=== PATIENT | female | born 1955 | race Caucasian/White ===

== ENCOUNTER 2018-03-12 14:39 | Outpatient (CLI) | payer OTHER | END 2018-03-12 14:40 | disposition home or self-care (01) | LOC: BICRAD 14:39 | PROVIDERS: ATTEND Family Medicine | DX: R07.89 Other chest pain (principal) | CPT/HCPCS: 71046 ==

== ENCOUNTER 2018-04-01 07:26 | Outpatient (CLI) | payer BC | END 2018-04-01 07:27 | disposition home or self-care (01) | LOC: BICULT 07:26 | PROVIDERS: ATTEND Family Medicine | DX: K76.0 Fatty (change of) liver, not elsewhere classified (principal); N28.1 Cyst of kidney, acquired; K76.89 Other specified diseases of liver | CPT/HCPCS: 76700 ==

== ENCOUNTER 2018-05-16 21:01 | Outpatient (CLI) | payer BC | END 2018-05-16 21:02 | disposition home or self-care (01) | LOC: LAB 21:01 | PROVIDERS: ATTEND Physician Assistant | DX: M54.9 Dorsalgia, unspecified (principal) | CPT/HCPCS: 87077; 87086; 87186 ==

== ENCOUNTER 2018-06-02 15:52 | Inpatient (IN) | payer BC ==
[~2018-06-02 15:52] MED LIST: Iopamidol 370 76% 100 ML VIAL ONE
[2018-06-02] MEDS ORDERED: Ondansetron HCl/PF 4 MG/2 ML Vial ONE (16:18)
[2018-06-02] MEDS ORDERED: Morphine 4 MG/ML VIAL ONE (16:18)
[2018-06-02 16:45] LABS: #Basophils 0.1 thou/uL (0.0-0.2); #Eosinphils 0.1 thou/uL (0.0-0.7); #Lymphocytes 1.4 thou/uL (1.20-3.40); #Monocytes 0.7 thou/uL (0.11-0.59); #Neutrophils 5.2 thou/uL (1.40-6.50); %Basophils 1.1 % (0.0-1.0); %Eosinophils 1.6 % (0.0-10.0); %Lymphocytes 18.2 % (21.0-51.0); %Monocytes 8.8 % (0.0-10.0); %Neutrophils 70.3 % (42.0-75.0); Hemoglobin 12.3 g/dL (12.0-16.0); Mean Corpuscular HGB CONC 34.7 g/dL (32.0-36.0); Mean Corpuscular Hemoglobin 31.2 pg (27.0-31.0); Mean Corpuscular Volume 90.1 fL (78.0-98.0); Mean Platelet Volume 5.7 fL (7.4-10.4); Platelet Count 431 thou/uL (130-400); Red Blood Cell (RBC) Count 3.93 mill/uL (4.20-5.40); White Blood Cell (WBC) Count 7.4 thou/uL (4.8-10.8)
[2018-06-02 16:47] LABS: ALT (SGPT) 13 U/L (8-55); AST (SGOT) 10 U/L (5-34); Albumin 3.2 g/dL (3.4-4.8); Alkaline Phosphatase 148 U/L (40-150); Anion Gap 13 mmol/L (10-20); BUN (Urea Nitrogen) 20 mg/dL (9.8-20.1); Bilirubin, Total 0.3 mg/dL (0.2-1.2); Calc. Creatinine Clearance 0 mL/min (70-130); Calcium 9.1 mg/dL (7.8-10.44); Carbon Dioxide 16 mmol/L (23-31); Chloride 113 mmol/L (98-107); Estimated GFR-MDRD 47; Globulin 2.8 g/dL (2.4-3.5); Glucose 103 mg/dL (80-115); Sodium 139 mmol/L (136-145)
[2018-06-02 16:49] LABS: Potassium 2.9 mmol/L (3.5-5.1)
[2018-06-02] MEDS ORDERED: Morphine 4 MG/ML Carpuject ONE (18:57)
--- NOTE | 2018-06-02 20:13 | CT ---
ABDOMEN AND PELVIS CT WITH CONTRAST: INDICATIONS: Abdominal pain and distention. Abdominal guarding. COMPARISON: Reference made to 03/01/2015. FINDINGS: There is abnormal distention of small bowel with associated mesenteric edema and mesenteric venous co ngestion. There is a nondilated loop of thick walled bowel at the low abdomen. Small bowel remains mildly dilated, to the level of the anastomotic suture of the right mid abdomen, demonstrating the ap pearance of an intracolonic anastomosis, as a result of prior right hemicolectomy. Correlate with puente rgical history. There is no pneumoperitoneum or portal vein gas evident. Right renal cyst formation , along with additional multiple right renal hypodensities, too small to further characterize. There is also a small hypodensity of the lower pole left kidney. Bilateral nonobstructive nephrolithiasis is seen. No evidence of adrenal mass. There is mild pancreatic atrophy with pancreatic ductal prom inence, of indeterminate etiology. No peripancreatic inflammation is seen. Moderately distended, un opacified urinary bladder is grossly unremarkable. There is a mild to moderate compression deformity of T12, which is new from the 2015 exam. IMPRESSION: 1. Findings which indicate bowel obstruction, which does measure up to approximately 3.8 cm in trans verse diameter of distended small bowel. This approximates the level of the right sided intracolonic anastomosis. In addition, there is a loop of nondilated, inflamed bowel at the low abdomen, for whi ch superimposed acute enteritis, including ischemic bowel, cannot be excluded and, therefore, a surgi itz consultation is warranted in this regard, particularly in light of the history of abdominal guard ing. 2. Interval T12 compression deformity with mild to moderate associated height loss. 3. Additional findings are detailed above. Telephone call of findings placed to the ER physician, Brijesh Flores M.D., at the time of the dictat ion (1818 hours on 06/02/2018). CODE CR POS: [facility]AKOB
[2018-06-02] MEDS ORDERED: Ondansetron HCl/PF 4 MG/2 ML Vial IVP PRN (21:24)
[2018-06-02] MEDS ORDERED: Ondansetron ODT 4 MG TAB SL PRN (21:24)
[2018-06-02] MEDS: Sodium Chloride 0.9% 1,000 ML IV SCH (21:43)
[2018-06-02 22:07] VITALS: BMI 25.0
--- NOTE | 2018-06-02 22:10 | RAD ---
ABDOMINAL RADIOGRAPH SERIES FRONTAL VIEW 06/02/18 INDICATION: NG tube placement. FINDINGS: There is a coiled catheter at the left upper quadrant. There is mild left basilar patchy density favo ring atelectasis. Elevation of the right hemidiaphragm. There is extruded contrast media seen at the urinary collection systems. IMPRESSION: Enteric catheter is coiled at the left upper quadrant. POS: [facility]
[2018-06-03] MEDS: Acetaminophen 1,000 MG in Premix Bag 1 BAG IVPB PRN ×2 (01:18→10:33)
[2018-06-03] MEDS ORDERED: Potassium Chloride 40 MEQ in Sodium Chloride 0.9% 250 ML 250 ML IVPB SCH (02:00)
[2018-06-03] MEDS: Sodium Chloride 0.9% 1,000 ML IV SCH (10:32)
[2018-06-03] MEDS ORDERED: Acetaminophen 500 MG TAB PO PRN (16:01)
--- NOTE | 2018-06-03 16:33 | PDOC.GSCN ---
Surgery Consult: HPI - Consult details Date: 06/03/18 Time: 11:00 Reason for consult: small bowel obstruction History of present illness: 06/03/18 16:33 Patient presents with complaint of abdominal pain and bloating. She had never had this pain in the past. Denies fever, chills. Denies nausea or vomiting. Patient reports she passed gas and had a bowel movement this morning. 06/03/18 16:35 06/03/18 16:45 Surgery Consult: ROS - Review of Systems All systems: 10 systems reviewed and no additional complaints unless stated below. Surgery Consult: PMH Source: patient Past Medical History: [place], chronic back pain, hypothyroid Past Surgical History: Bowel resection 3 years ago (2014) - Past Family History Family history: reviewed and not pertinent - Past Social History Smoking Status: Former smoker Alcohol Use: pt denies any use Drug Use History: pt denies any use Living Situation: independent Surgery Consult: Exam - Vital signs Vital signs: Vital Signs - Most Recent Temp Pulse Resp BP Pulse Ox 98.2 F 67 22 H 122/75 99 06/03/18 11:31 06/03/18 11:31 06/03/18 11:31 06/03/18 11:31 06/03/18 11:31 - Physical Exam General: no distress Eye: normal ocular movement ENT: no hearing loss, normal pinna Respiratory: normal expansion, normal respiratory effort Abdomen: non tender, soft, bowel sounds Neurologic: normal coordination Musculoskeletal: normal posture Psychiatric: memory intact, oriented to time, oriented to person, oriented to place Surgery Consult: Meds - Medications MAR Reviewed: Yes Medications: Current Medications Acetaminophen (Tylenol) 1,000 mg PO Q6H PRN PRN Reason: Moderate to Severe Pain (6-10) Sodium Chloride (Flush - Normal Saline) 10 ml IVF Q12HR BENSON Sodium Chloride (Flush - Normal Saline) 10 ml IVF PRN PRN PRN Reason: Saline Flush - Allergies Allergies/Adverse Reactions: Allergies Allergy/AdvReac Type Severity Reaction Status Date / Time tramadol HCl [From Ultra] Allergy Severe seizure Verified 10/11/14 10:55 codeine Allergy ITCHING Verified 06/02/18 21:57 Surgery Consult: Results - Labs Result Diagrams: 06/02/18 16:25 06/02/18 16:25 Lab results: Laboratory Results WBC 7.4 thou/uL (4.8-10.8) 06/02/18 16:25 RBC 3.93 mill/uL (4.20-5.40) L 06/02/18 16:25 Hgb 12.3 g/dL (12.0-16.0) 06/02/18 16:25 Hct 35.4 % (36.0-47.0) L 06/02/18 16:25 MCV 90.1 fL (78.0-98.0) 06/02/18 16:25 MCH 31.2 pg (27.0-31.0) H 06/02/18 16:25 MCHC 34.7 g/dL (32.0-36.0) 06/02/18 16:25 RDW 12.0 % (11.5-14.5) 06/02/18 16:25 Plt Count 431 thou/uL (130-400) H 06/02/18 16:25 MPV 5.7 fL (7.4-10.4) L 06/02/18 16:25 Neutrophils % 70.3 % (42.0-75.0) 06/02/18 16:25 Lymphocytes % 18.2 % (21.0-51.0) L 06/02/18 16:25 Monocytes % 8.8 % (0.0-10.0) 06/02/18 16:25 Eosinophils % 1.6 % (0.0-10.0) 06/02/18 16:25 Basophils % 1.1 % (0.0-1.0) H 06/02/18 16:25 Neutrophils # 5.2 thou/uL (1.40-6.50) 06/02/18 16:25 Lymphocytes # 1.4 thou/uL (1.20-3.40) 06/02/18 16:25 Monocytes # 0.7 thou/uL (0.11-0.59) H 06/02/18 16:25 Eosinophils # 0.1 thou/uL (0.0-0.7) 06/02/18 16:25 Basophils # 0.1 thou/uL (0.0-0.2) 06/02/18 16:25 Sodium 139 mmol/L (136-145) 06/02/18 16:25 Potassium 2.9 mmol/L (3.5-5.1) L* 06/02/18 16:25 Chloride 113 mmol/L (98-107) H 06/02/18 16:25 Carbon Dioxide 16 mmol/L (23-31) L 06/02/18 16:25 Anion Gap 13 mmol/L (10-20) 06/02/18 16:25 BUN 20 mg/dL (9.8-20.1) 06/02/18 16:25 Creatinine 1.16 mg/dL (0.6-1.1) H 06/02/18 16:25 Estimated GFR (MDRD) 47 06/02/18 16:25 Glucose 103 mg/dL (80-115) 06/02/18 16:25 Lactic Acid 0.9 mmol/L (0.5-2.2) 06/02/18 16:25 Calcium 9.1 mg/dL (7.8-10.44) 06/02/18 16:25 Total Bilirubin 0.3 mg/dL (0.2-1.2) 06/02/18 16:25 AST 10 U/L (5-34) 06/02/18 16:25 ALT 13 U/L (8-55) 06/02/18 16:25 Alkaline Phosphatase 148 U/L (40-150) 06/02/18 16:25 Serum Total Protein 6.0 g/dL (6.0-8.3) 06/02/18 16:25 Albumin 3.2 g/dL (3.4-4.8) L 06/02/18 16:25 Globulin 2.8 g/dL (2.4-3.5) 06/02/18 16:25 Albumin/Globulin Ratio 1.1 g/dL (1.2-2.2) L 06/02/18 16:25 Surgery Consult: A/P - Plan Plan: Reviewed radiology, abdominal XR and CT completed in ER. Consulted for concern for SBO. Patient reported passing gas and having a bowel movement this morning. A small bowel follow through was considered, but decided against completing considering patient's resolved symptoms. At this time, no concern for SBO. NG tube was removed and patient advanced to clear liquid diet. Advance diet as tolerated. Do not recommend any operative management. Patient was seen and examined with Dr. Rich who is in agreement and helped formulate plan as noted above.
--- NOTE | 2018-06-03 18:58 | HP ---
CHIEF COMPLAINT: Abdominal pain. HISTORY OF PRESENT ILLNESS: The patient presents with complaint of abdominal pain and bloating. She has never had this pain in the past. Denies fever, chills. Denies nausea or vomiting. There was c oncern for small-bowel obstruction. Patient, however, reports that she passed gas and had a bowel mo vement this morning. REVIEW OF SYSTEMS: ALL SYSTEMS: Ten systems reviewed and no additional complaints unless stated bel ow. PAST MEDICAL HISTORY: [place], chronic back pain, hypothyroid. PAST SURGICAL HISTORY: Bowel resection 3 years ago, 2014 FAMILY HISTORY: Reviewed and not pertinent. ALLERGIES: TRAMADOL, CODEINE. SOCIAL HISTORY: Smoking status: Former smoker. Alcohol use: The patient denies any use. Drug use : The patient denies any use. OBJECTIVE: VITAL SIGNS: Temperature 98.7, pulse 68, respiration rate 18, 98% on room air, blood pressure 146/76 . LABORATORY DATA: White blood cells 7.4, hemoglobin 12.3, hematocrit 35.4, platelets 431. Sodium 139 , potassium 2.9, chloride 113, carbon dioxide 16, BUN 20, creatinine 1.16, glucose 103. Lactic acid 0.9, calcium 9.1, AST 10, ALT 13, total bilirubin 0.3, calcium 9.1, alkaline phosphatase 148, serum t otal protein 6, albumin 3.2, globulin 2.8, albumin-globulin ratio 1.1. CT abdomen and pelvis shows findings, which could indicate bowel obstruction. A 3.8 cm transverse di ameter of distended small bowel. This approximates the level of the right-sided intracolonic anastom osis. In addition, there is a loop of nondilated inflamed bowel at the lower abdomen for which super imposed acute enteritis including ischemic bowel cannot be excluded and therefore surgical consultati on is warranted. ASSESSMENT AND PLAN: The patient was admitted with concern for small-bowel obstruction. The patient reported passing gas and having a bowel movement this morning. A small bowel follow through was con sidered, but decided against completing considering the patient's resolved symptoms. Nasogastric tub e did not have significant output. It was removed and patient is advanced to a clear liquid diet. A t this time, no concern for small-bowel obstruction. We will advance diet as tolerated. Tylenol p.r .n. for pain. We will monitor BNP. Do not currently recommend any operative management. The patient was seen and examined with Dr. Rich who was in agreement and helped formulate plan as no olivia above.
[2018-06-03] MEDS ORDERED: Melatonin 3 MG TAB PO PRN (21:38)
[2018-06-04 06:34] LABS: Mean Corpuscular HGB CONC 33.5 g/dL (32.0-36.0); Mean Corpuscular Hemoglobin 32.7 pg (27.0-31.0); Mean Corpuscular Volume 97.6 fL (78.0-98.0); Mean Platelet Volume 5.9 fL (7.4-10.4); Platelet Count 444 thou/uL (130-400); RBC Distribution Width 12.8 % (11.5-14.5); Red Blood Cell (RBC) Count 3.68 mill/uL (4.20-5.40); White Blood Cell (WBC) Count 9.5 thou/uL (4.8-10.8)
[2018-06-04 06:46] LABS: Anion Gap 11 mmol/L (10-20); BUN (Urea Nitrogen) 9 mg/dL (9.8-20.1); Band 15 % (5-11); Calc. Creatinine Clearance 75 mL/min (70-130); Calcium 8.5 mg/dL (7.8-10.44); Carbon Dioxide 17 mmol/L (23-31); Chloride 114 mmol/L (98-107); Eosinophils 3 % (0-10); Estimated GFR-MDRD 74; Glucose 85 mg/dL (80-115); Lymphocytes 19 % (21-51); MDiff Complete? YES; Magnesium 1.5 mg/dL (1.6-2.6); Metamyelocyte 8 % (0-0); Monocytes 1 % (0-10); Myelocyte 3 % (0-0); Neutrophil 51 % (42-75); PLT Morphology Comment Appears Increased; Sodium 139 mmol/L (136-145)
[2018-06-04 06:52] LABS: Phosphorus 1.9 mg/dL (2.3-4.7); Potassium 2.7 mmol/L (3.5-5.1)
[2018-06-04] MEDS ORDERED: Potassium Phosphate 30 MMOL, Admixture Fee 1 EACH in Sodium Chloride 0.9% 500 ML IVPB SCH (07:15)
[2018-06-04] MEDS ORDERED: Magnesium 2 GM/NS 0.9% 100 ML 2 GM in Premix Bag 1 BAG IVPB SCH (09:30)
[2018-06-04 12:24] VITALS: BP 130/78; TEMP 98.4
--- NOTE | 2018-06-05 11:39 | DIS-2 ---
DATE OF ADMISSION: 06/02/2018 DATE OF DISCHARGE: 06/04/2018 ADMITTING AND DISCHARGE ATTENDING: Dr. Gee Rich. CONSULTS: None. PROCEDURES: None. PRIMARY DIAGNOSIS: Ileus. DISCHARGE MEDICATIONS: 1. Multivitamin 1 tab oral daily. 2. Liothyronine sodium 5 mL, 15 mcg oral daily. 3. Imitrex 100 mg oral every 2 hours as needed. 4. Synthroid 75 mcg oral daily. 5. Wellbutrin-XL 300 mg oral daily. 6. Trintellix 20 mg oral daily. 7. Vicoprofen one tab q.8 hours p.r.n. 8. Nexium 40 mg oral daily. 9. Remeron 30 mg oral daily. 10. Zaleplon 10 mg p.o. at bedtime as needed. 11. Melatonin 12 mg p.o. at bedtime p.r.n. HOSPITAL COURSE: The patient presented with complaint of abdominal pain and bloating. The patient w as admitted for concern of small-bowel obstruction. However, without intervention, the patient passe d gas and had a bowel movement. Nasogastric tube did not have significant output and was removed. T he patient's diet was advanced and tolerated well. The patient was stable for discharge home. DISPOSITION: Stable. DISCHARGE INSTRUCTIONS: 1. Location: Home. 2. Diet: Regular. 3. Activity: Able to return to light duty work, 06/06/2018. Able to return to full duty work, 05/22. As tolerated. 4. Followup: With PCP, Dr. Olson as needed. May follow up with Dr. Rich as needed.
== END 2018-06-04 16:21 | disposition home or self-care (01) | DRG 390 ==
LOC: SCSER 15:52 → SURG B 20:16
PROVIDERS: ADMIT Surgery; ATTEND Surgery
DX: K56.609 Unspecified intestinal obstruction, unspecified as to partial versus complete obstruction (principal); E03.9 Hypothyroidism, unspecified; Z87.891 Personal history of nicotine dependence
CPT/HCPCS: 36415; 74018; 74177; 80048; 80053; 83605; 83735; 84100; 85025; 96361; 96374; 96375; 96376; J0131; J2270; J2405; J3475; J3480; J7050

== ENCOUNTER 2018-12-04 10:45 | Outpatient (CLI) | payer BC ==
--- NOTE | 2018-12-04 11:33 | RAD ---
TWO VIEWS CHEST: Comparison: 09-26-10, 03-12-18 History: Abnormal chest radiograph. FINDINGS: Two views of the chest shows normal sized cardiomediastinal silhouette. Increased interstitial markin gs are present. There may be a small calcified granuloma projecting over the right lateral thorax. Th ere is no evidence of consolidation or pleural effusion. The bones are unremarkable. IMPRESSION: No evidence of acute cardiopulmonary disease. POS: [facility]
--- NOTE | 2018-12-04 11:35 | RAD ---
THREE VIEWS LEFT FOOT: Comparison: None History: Left foot pain along the top medial foot. FINDINGS: Three views of the left foot shows no evidence of acute fracture or dislocation. There is joint space narrowing is the great toe metatarsal phalangeal joint. IMPRESSION: Degenerative changes of the great toe without acute osseous abnormality. POS: [facility]
== END 2018-12-04 10:46 | disposition home or self-care (01) ==
LOC: BICRAD 10:45
PROVIDERS: ATTEND Family Medicine
DX: M79.672 Pain in left foot (principal); R93.89 Abnormal findings on diagnostic imaging of other specified body structures; M19.072 Primary osteoarthritis, left ankle and foot
CPT/HCPCS: 36415; 71046; 80053

== ENCOUNTER 2018-12-09 12:00 | Outpatient (CLI) | payer BC | END 2018-12-09 12:01 | disposition home or self-care (01) | LOC: BICMAMMO 12:00 | PROVIDERS: ATTEND Family Medicine | DX: Z12.31 Encounter for screening mammogram for malignant neoplasm of breast (principal); Z80.3 Family history of malignant neoplasm of breast | CPT/HCPCS: 77063; 77067 ==

== ENCOUNTER 2019-01-13 07:57 | Outpatient (CLI) | payer BC ==
--- NOTE | 2019-01-13 12:42 | CT ---
CT ABDOMEN AND PELVIS WITH IV CONTRAST: Technique: Multiple contiguous axial images were obtained through the abdomen and pelvis with IV enha ncement. Oral contrast was administered. Indications: Abdominal pain. Comparison: CT abdomen and pelvis, 06-02-18 FINDINGS: Lung bases are clear. Images of the liver reveal a small hepatic cyst which is stable. There is a tiny low density focus in the spleen, possibly representing a tiny cyst which was also present previously. The pancreatic duct is prominent, especially in the body and tail of the pancreas. There is peripancr eatic haziness and inflammation suggesting pancreatitis involving the body and tail of the pancreas. Pancreatic duct was also prominent on the prior exam although the inflammatory changes are new. Adrenal glands unremarkable. Review of the kidneys show nonobstructing calculi in the upper collecting structures of the left kidn ey. There are two nonobstructing calculi in the lower pole collecting structure of the left kidney me asuring up to 5 mm. There are bilateral renal cystic lesions which appear stable. No hydronephrosis. Urinary bladder unremarkable. The small bowel loops show nonspecific distention without dilatation or evidence of obstruction. Ther e is evidence of prior right colectomy with radiopaque suture at the anastomosis of the colon in the region of the hepatic flexure. Stool throughout the colon. Pelvic structures unremarkable. Aorta normal caliber. Small umbilical hernia again noted. IMPRESSION: New inflammatory changes involving the body and tail of the pancreas when compared to prior study. Pr ominence of the pancreatic duct is again noted. POS: [facility]
[2019-01-13] MEDS ORDERED: Iopamidol 370 76% 100 ML VIAL ONE (13:43)
[2019-01-13] MEDS ORDERED: Iopamidol 370 76% 50 ML VIAL FS ONE (13:43)
== END 2019-01-13 07:58 | disposition home or self-care (01) ==
LOC: BICCT 07:57
PROVIDERS: ATTEND Family Medicine
DX: R10.9 Unspecified abdominal pain (principal)
CPT/HCPCS: 74177; 82565; Q9967

== ENCOUNTER 2019-10-19 15:19 | Outpatient (CLI) | payer BC ==
--- NOTE | 2019-10-19 15:42 | RAD ---
LEFT HIP 2 VIEWS: HISTORY: Left hip pain. FINDINGS: Degenerative changes are present. No fracture, dislocation, or bone destruction is seen. IMPRESSION: Left hip osteoarthritis. POS: [facility]
== END 2019-10-19 15:20 | disposition home or self-care (01) ==
LOC: BICRAD 15:19
PROVIDERS: ATTEND Family Medicine
DX: M25.552 Pain in left hip (principal); M16.12 Unilateral primary osteoarthritis, left hip

== ENCOUNTER 2019-11-16 09:54 | Day surgery (SDC) | payer BC ==
[2019-11-13 13:01] VITALS: BMI 25.7
[~2019-11-16 09:54] MED LIST changes: -Iopamidol 370 76% 100 ML VIAL ONE; +Lidocaine 1% PF 5 ML VIAL ONE; +PHENYLEPHRINE-NS 100 MCG/ML 10 ML SYRINGE ONE; +PROPOFOL 200 MG/20 ML VIAL ONE; +ePHEDrine/0.9% NaCl/PF SYRINGE 50 mg/10 ml ONE
[2019-11-16] MEDS ORDERED: Midazolam HCl 2 mg/2 ml Vial ONE (11:07)
[2019-11-16] MEDS ORDERED: Fentanyl 100 MCG/2 ML VIAL ONE (11:07)
--- NOTE | 2019-11-16 13:47 | MRI ---
LUMBAR SPINE MRI WITHOUT CONTRAST: COMPARISON: 10/12/2014. HISTORY: Left hip pain. Chronic back pain. FINDINGS: Overall appropriate T1 marrow signal intensity of the lumbar vertebrae. Lumbar spine vertebral body heights are maintained. There is no fracture. No significant STIR hyperintensity to suggest vertebr al body edema or ligamentous injury. There is 3.9 mm of retrolisthesis of L2 upon L3. No associated spondylolysis. Chronic Schmorl's node along the superior end plate of T12. Appropriate signal intensity of the visualized paraspinal muscles. Multiple T2 hyperintensities in t he left and right renal cortex compatible with bilateral cortical cysts. There also is a cyst in the right hepatic lobe. Conus medullaris terminates at the mid T12 level. T12-L1: Adequate disk hydration. No significant central canal stenosis. Neural foramen are patent. L1-L2: Adequate disk hydration. No significant central canal stenosis. Bilaterally, neural foramen are patent. L2-L3: Disk desiccation with mild loss of disk space height. Broad-based disk bulge, minimal ligame ntum flavum thickening, and facet hypertrophy due to resultant mild central canal stenosis. Mild rig ht and minimal left neural foraminal narrowing. L3-L4: Disk desiccation with moderate loss of disk space height. Broad-based disk bulge results in mild central canal stenosis. Encroachment upon bilateral subarticular zones. Partial obscuration of traversing right L4 nerve root. Partial obscuration of traversing left L4 nerve root. Mild to mode rate right and mild left foraminal narrowing. T2 hyperintensity in the left neural foraminal narrowi ng likely representing a peroneal sleeve cyst. Finding is similar to the previous examination. L4-L5: Desiccation without significant loss of disk space height. Broad-based disk bulge abuts the thecal sac. There is no significant central canal stenosis. A trace amount of fluid in both facet j oints is nonspecific. Right neural foramen is patent. Moderate to severe left foraminal narrowing p redominantly due to disk material and to a lesser extent facet hypertrophy. The degree of left sim inal stenosis has only minimally progressed when compared to the previous examination. L5-S1: Adequate disk hydration. No significant central canal stenosis. Mild right and moderate lef t foraminal narrowing. The overall degree of foraminal stenosis has not changed. There is a T2 hype rintensity in the right neural foramen, likely representing a perirenal sleeve cyst. There are T2 hyperintensities at the S2 level, unchanged also likely to be perineal sleeve cysts. IMPRESSION: Degenerative changes of the lumbar spine as described above. POS: [facility]
== END 2019-11-16 13:25 | disposition home or self-care (01) ==
LOC: SDC/OP 09:54
PROVIDERS: ATTEND Psychiatry & Neurology Neurology
DX: M43.16 Spondylolisthesis, lumbar region (principal); M48.061 Spinal stenosis, lumbar region without neurogenic claudication; M48.07 Spinal stenosis, lumbosacral region; Z79.899 Other long term (current) drug therapy; Z88.5 Allergy status to narcotic agent
CPT/HCPCS: 72148; J2001; J2250; J2704; J3010

== ENCOUNTER 2019-12-25 13:50 | Inpatient (IN) | payer BC ==
[2019-12-25 14:52] LABS: Mean Corpuscular HGB CONC 32.2 g/dL (32.0-36.0)
[2019-12-25 14:53] LABS: %Neutrophils 88.3 % (42.0-75.0)
[2019-12-25 15:09] LABS: Calc. Creatinine Clearance 0 mL/min (70-130)
[2019-12-25 15:53] LABS: Bacteria/HPF 4+ HPF (None Seen); Bilirubin Negative (Negative); Blood, Urine 1+ (Negative); Clarity Extra Turbid (Clear); Glucose, Urine (Dipstick) Normal (Negative); Leukocyte 500 Leu/uL (Negative); Nitrite Negative (Negative); Protein, Urine (Dipstick) 100 mg/dL (Neg-Trace); Squamous Epithelial 0-3 HPF (0-3); Urobilinogen Normal mg/dL (Less than 2); WBC/HPF Greater than 50 HPF (0-3)
[2019-12-25 15:59] LABS: Hemoglobin 10.3 g/dL (12.0-16.0); Mean Corpuscular Hemoglobin 32.9 pg (27.0-31.0); RBC Distribution Width 12.9 % (11.5-14.5); Red Blood Cell (RBC) Count 3.13 mill/uL (4.20-5.40); White Blood Cell (WBC) Count 12.7 thou/uL (4.8-10.8)
[2019-12-25 16:00] LABS: %Eosinophils 0.2 % (0.0-10.0); %Lymphocytes 7.1 % (21.0-51.0); %Monocytes 4.2 % (0.0-10.0); Mean Platelet Volume 6.7 fL (7.4-10.4); Platelet Count 286 thou/uL (130-400)
[2019-12-25 16:01] LABS: #Eosinphils 0.2 thou/uL (0.0-0.7); #Lymphocytes 0.9 thou/uL (1.20-3.40); #Monocytes 0.5 thou/uL (0.11-0.59); #Neutrophils 11.2 thou/uL (1.40-6.50); %Basophils 0.2 % (0.0-1.0)
[2019-12-25 16:27] LABS: Carbon Dioxide 14 mmol/L (23-31); Chloride 108 mmol/L (98-107); Potassium 4.3 mmol/L (3.5-5.1); Sodium 136 mmol/L (136-145)
[2019-12-25 16:28] LABS: Anion Gap 18 mmol/L (10-20)
[2019-12-25 16:29] LABS: BUN (Urea Nitrogen) 32 mg/dL (9.8-20.1)
[2019-12-25 16:31] LABS: Estimated GFR-MDRD 11
[2019-12-25 16:32] LABS: Calcium 8.3 mg/dL (7.8-10.44); Glucose 95 mg/dL (80-115)
[2019-12-25 16:33] LABS: Bilirubin, Total 0.3 mg/dL (0.2-1.2); Protein, Total 6.3 g/dL (6.0-8.3)
[2019-12-25 16:34] LABS: Albumin 3.8 g/dL (3.4-4.8); Globulin 2.5 g/dL (2.4-3.5)
[2019-12-25 16:35] LABS: AST (SGOT) 109 U/L (5-34); Alkaline Phosphatase 634 U/L (40-110)
[2019-12-25 16:37] LABS: ALT (SGPT) 121 U/L (8-55); Lipase 20 U/L (8-78)
--- NOTE | 2019-12-25 16:38 | CT ---
CT abdomen and pelvis noncontrast HISTORY: Left flank pain. FINDINGS: Each renal collecting system, ureter, and urinary bladder are decompressed. At the inferior pole of the left kidney, too calcifications within nondilated calyces are each 0.3 cm greatest diameter. At the inferior pole of the right kidney are 2 adjacent calcifications, each 0.1 cm greates t diameter. Mild atelectasis at the lung bases. Prominent degenerative changes of the lumbar spine. Mild compress ion of the T12 superior endplate is stable. Gas within the posterior disc herniation at the L3-4 level is similar in appearance to the previous exam. Lack of contrast limits evaluation for other abnormalities. There are innumerable low-density masses throughout the liver, overall occupying more than one half of the space of the liver parenchyma. The largest confluent mass is within the anterior segment right liver lobe, measuring up to 3.9 cm gr eatest diameter. Renal cysts better detailed on prior contrast-enhanced exams are partially visualized. Postoperative changes of the right colon are apparent. Diverticula arise from the colon w ithout adjacent inflammation. IMPRESSION: Small nonobstructing bilateral renal calculi. Low-density masses throughout the liver likely represent metastatic disease (rather than infection). Status post right hemicolectomy. Diverticulosis. No evidence of diverticulitis.
[2019-12-25] MEDS ORDERED: cefTRIAXone\\ROCEPHIN 2 GM VIAL ONE (17:42)
--- NOTE | 2019-12-25 18:15 | RAD ---
EXAM: CHEST TWO VIEWS 12/25/2019 6:12 PM HISTORY: Chronic back pain and chest pain COMPARISON: March 03, 2019 FINDINGS: Lungs: No acute airspace consolidation. Heart: Normal in size and contour. Pulmonary Vessels: Normal. Costophrenic Angles: Clear. Pneumothorax: None. Osseous Structures: Intact. Additional Findings: None. IMPRESSION: No significant acute intrathoracic disease.
[2019-12-25] MEDS ORDERED: Sodium Chloride 0.9% 1,000 ML IV SCH (19:27)
[2019-12-25] MEDS ORDERED: Acetaminophen 325 MG TAB PO PRN (19:27)
[2019-12-25] MEDS ORDERED: HYDROcodone/Acetaminophen 5/325 mg Tablet PO PRN ×2 (19:27)
[2019-12-25] MEDS ORDERED: Ondansetron PF 4 MG/2 ML Vial IVP PRN (19:27)
[2019-12-25] MEDS ORDERED: Ondansetron ODT 4 MG TAB SL PRN (19:27)
[2019-12-25 20:11] VITALS: BMI 25.7
[2019-12-25] MEDS: Heparin 5,000 UNITS/ML VIAL SC SCH (20:33)
[2019-12-25] MEDS: Sodium Chloride 0.9% 1,000 ML IV SCH (20:36)
--- NOTE | 2019-12-26 01:53 | CON ---
DATE OF CONSULTATION: 12/25/2019 CONSULTING PHYSICIAN: Dr. Gonzalez. REASON FOR CONSULTATION: Acute kidney injury. REASON FOR ADMISSION: Abnormal labs and back pain. HISTORY OF PRESENT ILLNESS: This is a 64-year-old white female with a history of anxiety, depression, and nephrolithiasis, came to the hospital with back pain and is being admitted. The patient was found to have nephrolithiasis and also acute kidney injury. The patient is on IV fluids. She is lethargic, but no fever or chills. No nausea or vomiting. No diarrhea reported. PAST MEDICAL HISTORY: Positive for depression, nephrolithiasis, anxiety, depression. PAST SURGICAL HISTORY: Appendectomy, sinus surgery, lithotripsy, colon resection. The patient also have migraine and hypothyroidism. HOME MEDICATIONS: Reviewed. ALLERGIES: TO CODEINE, TRAMADOL. SOCIAL HISTORY: No smoking, alcohol or drugs. FAMILY HISTORY: No history of kidney disease. REVIEW OF SYSTEMS: CONSTITUTIONAL: Negative for weight loss or gain, ability to conduct usual activities. SKIN: Negative for rash, itching. EYES: Negative for double vision, pain. ENT/MOUTH: Negative for nose bleeding, neck stiffness, pain, tenderness. CARDIOVASCULAR: Negative for palpitations, dyspnea on exertion, orthopnea. RESPIRATORY: Negative for shortness of breath, wheezing, cough, hemoptysis, fever or night sweats. GASTROINTESTINAL: Negative for poor appetite, abdominal pain, heartburn, nausea, vomiting, constipation, or diarrhea. GENITOURINARY: Negative for urgency, frequency, dysuria, nocturia. MUSCULOSKELETAL: Negative for pain, swelling. NEUROLOGIC/PSYCHIATRIC: Negative for anxiety, depression. ALLERGY/IMMUNOLOGIC: Negative for skin rash, bleeding tendency. PHYSICAL EXAMINATION: GENERAL: This is a thin built female, in no apparent distress. VITAL SIGNS: Temperature 98.3, pulse 80, respiratory rate 18, blood pressure 85/46 on arrival. HEENT: Atraumatic, normocephalic. Oral mucosa is dry. NECK: Supple. CV: S1 and S2 heard. Regular rate and rhythm. RESPIRATORY: Clear. GASTROINTESTINAL: Abdomen is soft. MUSCULOSKELETAL: 1+ edema. DERMATOLOGIC: No skin rash. NEUROLOGIC: Alert and awake. PSYCHIATRIC: Mood and affect normal. LABORATORY DATA: Potassium 4.3, BUN is 32, and creatinine is 4.1. ASSESSMENT AND PLAN: 1. Acute kidney injury, most likely volume depletion. Agree with hydration. 2. Nonobstructing bilateral renal calculi. Continue hydration. 3. Edema, controlled. 4. Hypertension. 5. Acidosis. We will monitor. 6. Elevated liver enzymes and liver mass. 7. Continue hydration and monitor renal function. 8. Chronic hypotension. Check cortisol level in the morning. We will follow. Thank you for the consult. Job ID: [id number]
--- NOTE | 2019-12-26 02:17 | PDOC.HHP ---
Hospitalist HPI - History of Present Illness Back pain; Hips pain History of Present Illness: 64 yo female with migraine presented to ER due to pain in both hips and inability to walk due to the same. She states that he visited her friend in [facility] a couple of days ago and flew back via [place] airport. She states that she walked a lot at that airport. On , she started experiencing pain in both her hips and inability to walk due to the pain. So, she presented to the ER. She states that she has been having left upper back pain for 2-3 months. Over the past month, she has been taking IBUPROFEN about 4 TIMES DAILY. She rates the back pain as 8/10 that is dull in nature without any radiation. No weakness in her arms or legs over the past month. No fever, chills. She reports nausea but no vomiting, diarrhea or constipation. No abdominal pain. No CP, SOB, Cough , wheezing, palpitations, dizziness. No burning or pain with urination. No hematuria, hematochezia or melena. ED Course: Found to have CLAUDIO & Transaminitis. Admitted for the same. Hospitalist ROS - Review of Systems All other systems reviewed; all pertinent +/- noted in HPI/Subj - Medication Medications: Active Medications Generic Name Dose Route Start Last Admin Trade Name Freq PRN Reason Stop Dose Admin Heparin Sodium (Porcine) 5,000 units 12/25/19 21:00 12/25/19 20:33 Heparin SC 5,000 units TID BENSON Administration Sodium Chloride 1,000 mls @ 75 mls/hr 12/25/19 20:15 12/25/19 20:36 Normal Saline 0.9% IV 1,000 mls .[id number] BENSON Administration Hospitalist History - Past Medical History Source: patient [employer]STRU[employer]STRU[employer]: reports: Migraine Psych: reports: Anxiety, Depression - Past Surgical History Past Surgical History: reports: Appendectomy, Other (Colon & sinus surgery) - Family History Family History: reports: no pertinent history (reviewed) - Social History Smoking Status: Current every day smoker (1/2 PPD) Alcohol: reports: Heavy (2-3 whisky daily; No history of withdrawal seizures or DTs) Drugs: reports: none Living Situation: Alone Activity level: independent ambulation - Exam General Appearance: awake alert, ill appearing Eye: PERRL, anicteric sclera ENT: normocephalic atraumatic, no oropharyngeal lesions, dry oral mucosa Neck: supple, symmetric, no JVD, no thyromegaly Heart: RRR, no murmur, no gallops, no rubs, normal peripheral pulses Respiratory: CTAB, no wheezes, no rales, no ronchi, normal chest expansion, no tachypnea, normal percussion Gastrointestinal: soft, non-distended, normal bowel sounds, no palpable masses, no guarding, no rigidity, tender to palpation (RLQ with rebound tenderness) Extremities: no cyanosis, no clubbing, no edema Skin: normal turgor, no lesions, no rashes Neurological: cranial nerve grossly intact, normal sensation to touch, no weakness Musculoskeletal: normal tone, no muscle wasting Musculoskeletal - other findings: Power 4+/5 all over Psychiatric: A&O x 3 Psychiatric - other findings: Flat affect Hospitalist Results - Labs Result Diagrams: 12/25/19 15:43 12/25/19 14:31 Lab results: WBC 12.7 thou/uL (4.8-10.8) H 12/25/19 15:43 Hgb 10.3 g/dL (12.0-16.0) L 12/25/19 15:43 Hct 32.0 % (36.0-47.0) L 12/25/19 15:43 MCV 102.0 fL (78.0-98.0) H 12/25/19 15:43 Plt Count 286 thou/uL (130-400) 12/25/19 15:43 Neutrophils % 88.3 % (42.0-75.0) H 12/25/19 15:43 Sodium 136 mmol/L (136-145) 12/25/19 14:31 Potassium 4.3 mmol/L (3.5-5.1) 12/25/19 14:31 Chloride 108 mmol/L (98-107) H 12/25/19 14:31 Carbon Dioxide 14 mmol/L (23-31) L 12/25/19 14:31 BUN 32 mg/dL (9.8-20.1) H 12/25/19 14:31 Creatinine 4.19 mg/dL (0.6-1.1) H 12/25/19 14:31 Glucose 95 mg/dL (80-115) 12/25/19 14:31 Calcium 8.3 mg/dL (7.8-10.44) 12/25/19 14:31 Total Bilirubin 0.3 mg/dL (0.2-1.2) 12/25/19 14:31 AST 109 U/L (5-34) H 12/25/19 14:31 ALT 121 U/L (8-55) H 12/25/19 14:31 Alkaline Phosphatase 634 U/L (40-110) H 12/25/19 14:31 Creatine Kinase 429 U/L (29-168) H 12/25/19 20:12 Serum Total Protein 6.3 g/dL (6.0-8.3) 12/25/19 14:31 Albumin 3.8 g/dL (3.4-4.8) 12/25/19 14:31 Lipase 20 U/L (8-78) 12/25/19 14:31 Urine Ketones Negative mg/dL (Negative) 12/25/19 15:22 Urine Blood 1+ (Negative) A 12/25/19 15:22 Urine Nitrite Negative (Negative) 12/25/19 15:22 Ur Leukocyte Esterase 500 Mallory/uL (Negative) A 12/25/19 15:22 Urine RBC 7-10 HPF (0-3) A 12/25/19 15:22 Urine WBC Greater than 50 HPF (0-3) A 12/25/19 15:22 Ur Squamous Epith Cells 0-3 HPF (0-3) 12/25/19 15:22 Urine Bacteria 4+ HPF (None Seen) A 12/25/19 15:22 - Radiology Interpretation CT scan - abdomen Status: report reviewed by me (Bilateral renal calculi; Hepatic massess concerning for mets) Hospitalist H&P A/P - Problem (1) CLAUDIO (acute kidney injury) Code(s): N17.9 - ACUTE KIDNEY FAILURE, UNSPECIFIED Status: Acute Assessment and Plan: Admit to inpatient status. Expected to stay at least 2 midnights. High risk due to risk of worsening renal failure that may need dialysis. Likely due to NSAID use over the past month for her back pain Case DW Dr. Lindsey from nephrology. IV fluids. Suspicion for ATN Avoid nephrotoxic meds and hypotension. Monitor urine output and renal function closely. (2) UTI (urinary tract infection) Status: Acute Qualifiers: Urinary tract infection type: acute cystitis Hematuria presence: without hematuria Qualified Code(s): N30.00 - Acute cystitis without hematuria Assessment and Plan: She will be placed on IV abx for 3 days Follow urine cultures (3) Liver masses Code(s): R16.0 - HEPATOMEGALY, NOT ELSEWHERE CLASSIFIED Status: Acute Assessment and Plan: Concern for metastatic disease Patient c/o back pain. Maybe pancreatic cancer CEA obtained - this is elevated. AFP within normal limits. CA 19-9 ordered. Oncology consulted May need liver mass biopsy. Will defer to oncology (4) Migraine Code(s): G43.909 - MIGRAINE, UNSP, NOT INTRACTABLE, WITHOUT STATUS MIGRAINOSUS Status: Chronic Qualifiers: Migraine type: without aura Status migrainosus presence: without status migrainosus Intractability: not intractable Qualified Code(s): G43.009 - Migraine without aura, not intractable, without status migrainosus Assessment and Plan: Stable PRN meds - Plan Plan: CODE STATUS - DNR ONLY; May Intubated
[2019-12-26] MEDS ORDERED: Sodium Chloride 0.9% 1,000 ML IV SCH (02:45)
[2019-12-26 07:01] LABS: ALT (SGPT) 86 U/L (8-55); AST (SGOT) 83 U/L (5-34); Albumin 2.9 g/dL (3.4-4.8); Alkaline Phosphatase 481 U/L (40-110); Anion Gap 13 mmol/L (10-20); BUN (Urea Nitrogen) 29 mg/dL (9.8-20.1); Bilirubin, Total 0.3 mg/dL (0.2-1.2); Calc. Creatinine Clearance 24 mL/min (70-130); Calcium 6.9 mg/dL (7.8-10.44); Carbon Dioxide 13 mmol/L (23-31); Chloride 114 mmol/L (98-107); Estimated GFR-MDRD 20; Globulin 2.1 g/dL (2.4-3.5); Glucose 88 mg/dL (80-115); Potassium 3.6 mmol/L (3.5-5.1); Sodium 136 mmol/L (136-145)
[2019-12-26 07:36] LABS: #Eosinphils 0.1 thou/uL (0.0-0.7); #Monocytes 0.6 thou/uL (0.11-0.59); #Neutrophils 6.3 thou/uL (1.40-6.50); %Basophils 0.2 % (0.0-1.0); %Eosinophils 1.7 % (0.0-10.0); %Lymphocytes 12.8 % (21.0-51.0); %Monocytes 7.9 % (0.0-10.0); %Neutrophils 77.5 % (42.0-75.0); Mean Corpuscular HGB CONC 33.8 g/dL (32.0-36.0); Mean Corpuscular Hemoglobin 34.3 pg (27.0-31.0); Platelet Count 228 thou/uL (130-400); Red Blood Cell (RBC) Count 2.68 mill/uL (4.20-5.40); White Blood Cell (WBC) Count 8.2 thou/uL (4.8-10.8)
[2019-12-26 07:47] LABS: Hemoglobin 9.2 g/dL (12.0-16.0)
[2019-12-26] MEDS ORDERED: FLU VACC QS2019-20(6MOS UP)/PF 60 MCG/0.5 ML SYRINGE IM ONE (09:00)
[2019-12-26] MEDS: Heparin 5,000 UNITS/ML VIAL SC SCH ×3 (10:03→23:25)
[2019-12-26] MEDS: Sodium Chloride 0.9% 1,000 ML IV SCH (10:04)
[2019-12-26] MEDS ORDERED: SUMAtriptan Succinate 50 MG TAB PO PRN (10:52)
[2019-12-26] MEDS ORDERED: Labetalol HCl 100 MG/20 ML VIAL SLOW IVP PRN (10:55)
[2019-12-26] MEDS ORDERED: Benzonatate 100 MG CAP PO PRN (10:55)
[2019-12-26] MEDS ORDERED: diphenhydrAMINE 25 MG CAP PO PRN (10:55)
[2019-12-26] MEDS ORDERED: Ondansetron PF 4 MG/2 ML Vial IVP PRN (10:55)
[2019-12-26] MEDS ORDERED: Docusate 100 MG CAP PO PRN (10:55)
[2019-12-26] MEDS ORDERED: Ondansetron ORAL SOLN. 4 MG/5 ML UDCUP PO PRN (10:55)
[2019-12-26] MEDS: Sodium Bicarbonate 75 MEQ in Sodium Chloride 0.45% 1,000 ML IV SCH (11:12)
[2019-12-26] MEDS: HYDROcodone/Acetaminophen 5/325 mg Tablet PO PRN ×2 (11:13→18:35)
[2019-12-26] MEDS: Calcium Carbonate 500 MG TAB PO SCH ×2 (12:41→17:21)
--- NOTE | 2019-12-26 13:01 | PRG ---
DATE OF SERVICE: 12/26/2019 SUBJECTIVE: Patient was seen and examined at bedside and overnight events noted. Patient denies any shortness of breath or chest pain or palpitation. No history of nausea or vomiting or diarrhea or fever or chills or cramps. OBJECTIVE: GENERAL: This is a well-built female, in no apparent distress. VITAL SIGNS: Temperature 98.1. Heart rate 72. Respiratory rate 18. Blood pressure . HEENT: Atraumatic, normocephalic. Oral mucosa is moist NECK: Supple. CARDIOVASCULAR: S1, S2 heard. Rate and rhythm regular. RESPIRATORY: Clear to auscultation. GASTROINTESTINAL: Abdomen is soft. MUSCULOSKELETAL: No tenderness. No edema. DERMATOLOGIC: No skin rash. NEUROLOGIC: Alert and awake and oriented X3. No focal neurologic deficits. Moving all the extremities. PSYCHIATRIC: Mood and affect normal. LABORATORY DATA: Potassium is 3.6, BUN is 29, creatinine is 2.4. ASSESSMENT AND PLAN: 1. Acute kidney injury, better. 2. Nonobstructing bilateral renal calculi. 3. Hypocalcemia. Start on calcium supplements. 4. Edema. 5. History of . 6. Renal function is better. We will change IV fluids to bicarb containing fluids, and we will follow. Job ID: [id number]
--- NOTE | 2019-12-26 17:13 | CON ---
DATE OF CONSULTATION: 12/26/2019 REASON FOR CONSULTATION: Probable metastatic malignancy to the liver. HISTORY OF PRESENT ILLNESS: The patient is a 64-year-old woman, admitted for a several-day history of poor oral intake and generalized muscle pain. She had returned recently from the [facility], having visited a friend, and did well there, however. She had no nausea, vomiting, or diarrhea. She had no fever. No upper respiratory complaints. She was seen in the emergency room and found to have prerenal azotemia with a creatinine of 4 and BUN 32. Transaminases were abnormal, manifested by AST 109, ALT 121, and alkaline phosphatase 634, the total bilirubin was normal at 0.3. Imaging of the abdomen was then performed and showed multiple focal defects in the liver, consistent with metastatic disease. Chest x-ray was normal. I am asked to see the patient at this time to provide further management and recommendations. She has no history of weight loss or melena/hematochezia or hematuria. There is a history of pancreatitis a few months ago, thought secondary to excess alcohol. She stopped alcohol and that improved. She was not hospitalized, but was under the care of her primary care provider, Dr. Olson. She did undergo colonoscopy approximately 2 years ago, reportedly negative. ALLERGIES: SHE DESCRIBES SENSITIVITIES TO CODEINE AND TRAMADOL. CURRENT MEDICATIONS: 1. Tessalon. 2. DuoNeb. 3. Hydrocodone. 4. Wellbutrin. 5. Benadryl. MEDICAL ILLNESSES: There is no history of hypertension, diabetes mellitus, or heart disease. She has had a history of emotional lability, depression, and anxiety. There is a history of nephrolithiasis. As mentioned above, she did experience an outpatient episode of pancreatitis, that resolved with discontinuing alcohol. SURGERIES: The patient has undergone: 1. Appendectomy. 2. Sinus surgery. 3. Lithotripsy. 4. A colon resection for benign disease. 5. She apparently had an ischemic event, which required a bowel resection. SOCIAL HISTORY: She has smoked off and on for many years. Over the past few years, she has drunk alcohol excessively, but only admits to 2 to 3 drinks per evening 3-4 days weekly. FAMILY HISTORY: There is no significant history of malignancy except in the father who had some sort of bone metastasis. REVIEW OF SYSTEMS: Negative except as mentioned above in the HPI. She otherwise denies significant cardiopulmonary, GI, , musculoskeletal, or neurological complaints. PHYSICAL EXAMINATION: VITAL SIGNS: Temperature 97.3, pulse 71, respirations 18, and blood pressure 108/66. GENERAL: The patient is a well-developed, well-nourished woman, in no acute distress. She is alert, oriented, and cooperative. She is anxious and somewhat distraught over a possible diagnosis of malignancy. HEENT: The extraocular movements are intact. Pupils are equal, round, and reactive to light. NECK: Supple. LUNGS: Clear. CARDIOVASCULAR: Regular rate and rhythm without murmur or gallop or click. ABDOMEN: No tenderness, organomegaly, masses, bruits, or ascites. The right upper quadrant is slightly tender. EXTREMITIES: No clubbing, cyanosis, or edema. SKIN: Normal. LYMPHATICS: No adenopathy. MUSCULOSKELETAL: No active arthritis. NEUROLOGIC: No focal findings and the cranial nerves 2 through 12 are grossly intact. LABORATORY DATA: White blood cell count 8.2, hemoglobin 9.2, and platelet count 228,000. Chemistries after hydration today show a sodium 136, potassium 3.6, chloride 114, carbon dioxide 13, the creatinine is 2.4, and BUN 29. The albumin is 2.9 and calcium is 6.9. Transaminases are slightly improved at 83 and 86, respectively, the alkaline phosphatase is also somewhat improved at 481. Creatine kinase is elevated at 429. Finally, the carcinoembryonic antigen is 74.5 and AFP 2.9. The lipase is normal at 20. IMAGING STUDIES: See history of present illness. In addition, the chest x-ray was normal. IMPRESSION: Probable metastatic malignancy to liver, primary unknown. RECOMMENDATIONS: I discussed findings at length with the patient. I have recommended a CT-guided liver biopsy in an effort to definitively establish a tissue diagnosis. The elevated creatine kinase is somewhat unusual and not typically seen with metastatic malignancy in this setting. We will need to monitor this. Thanks very much for allowing me to provide more recommendations. Job ID: [id number]
[2019-12-26] MEDS: cefTRIAXone\\ROCEPHIN 1 GM in Sodium Chloride 0.9% 100 ML IVPB SCH (17:21)
[2019-12-27] MEDS: Sodium Bicarbonate 75 MEQ in Sodium Chloride 0.45% 1,000 ML IV SCH ×2 (00:07→10:57)
[2019-12-27] MEDS: HYDROcodone/Acetaminophen 5/325 mg Tablet PO PRN ×4 (01:56→18:23)
[2019-12-27 06:09] LABS: INR-International Normal Ratio 1.1; Prothrombin Time 13.7 SEC (12.0-14.7)
[2019-12-27] MEDS: Heparin 5,000 UNITS/ML VIAL SC SCH ×3 (08:12→21:21)
[2019-12-27] MEDS: Levothyroxine Sodium 75 MCG TAB PO SCH (08:13)
[2019-12-27] MEDS: Calcium Carbonate 500 MG TAB PO SCH ×3 (08:13→17:39)
[2019-12-27] MEDS: Loratadine 10 MG TAB PO SCH (08:13)
[2019-12-27] MEDS: Multivitamin W/ Minerals 1 TAB PO SCH (08:13)
[2019-12-27] MEDS: buPROPion HCl 100 MG TAB PO SCH (08:14)
[2019-12-27] MEDS ORDERED: Non-Formulary Item 1 EACH (Cetirizine Hcl [Zyrtec] 10 MG) PO SCH (09:00)
[2019-12-27] MEDS ORDERED: [UNRECOGNIZED DRUG - OTHER] PO SCH (09:00)
[2019-12-27] MEDS: Liothyronine Sodium 5 MCG TAB PO SCH (09:10)
[2019-12-27 13:08] LABS: Anion Gap 11 mmol/L (10-20); BUN (Urea Nitrogen) 19 mg/dL (9.8-20.1); Calc. Creatinine Clearance 57 mL/min (70-130); Calcium 7.8 mg/dL (7.8-10.44); Carbon Dioxide 20 mmol/L (23-31); Chloride 112 mmol/L (98-107); Estimated GFR-MDRD 54; Glucose 115 mg/dL (80-115); Potassium 2.6 mmol/L (3.5-5.1); Sodium 140 mmol/L (136-145)
--- NOTE | 2019-12-27 13:13 | PDOC.HOSPP ---
- Subjective Subjective: Seen and examined. Patient having some lower abdominal cramping, states she has not moved her bowels. She has had a recent bout of constipation when she was on vacation. Recommended stool softeners, laxatives only if she is getting desperate. Discussed urine culture results, sensitive to current antibiotics. Plan for liver biopsy tomorrow. Time was given for questions, all answered in detail. - Objective Vital Signs & Weight: Vital Signs (12 hours) Temp Pulse Resp BP Pulse Ox 12/27/19 08:00 93 L 12/27/19 07:39 98.0 F 67 18 125/77 93 L Weight Weight 145 lb 1.6 oz I&O: 12/26/19 12/27/19 12/28/19 05:59 06:59 06:59 Intake Total 240 Balance 240 Result Diagrams: 12/26/19 06:37 12/27/19 12:36 Radiology Reviewed by me: Yes Hospitalist ROS - Review of Systems All other systems reviewed; all pertinent +/- noted in HPI/Subj - Medication Medications: Active Medications Generic Name Dose Route Start Last Admin Trade Name Freq PRN Reason Stop Dose Admin Hydrocodone Bitart/Acetaminophen 1 tab 12/26/19 10:52 12/27/19 09:13 [place] 5/325 PO 1 tab Q4H PRN Administration Moderate to Severe Pain (6-10) Bupropion HCl 300 mg 12/27/19 09:00 12/27/19 08:14 Wellbutrin PO 300 mg DAILY BENSON Administration Calcium Carbonate 500 mg 12/26/19 12:00 12/27/19 12:55 Oscal-500 PO 500 mg TID-WM BENSON Administration Heparin Sodium (Porcine) 5,000 units 12/25/19 21:00 12/27/19 08:12 Heparin SC 5,000 units TID BENSON Administration Ceftriaxone Sodium 1 gm/ 100 mls @ 200 mls/hr 12/26/19 18:00 12/26/19 17:21 Sodium Chloride IVPB 12/29/19 18:01 100 mls Q24HR@1800 BENSON Administration Sodium Bicarbonate 75 meq/ 1,075 mls @ 100 mls/hr 12/26/19 11:00 12/27/19 10: 57 Sodium Chloride IV 1,075 mls .[id number] BENSON Administration Iron/Minerals/Multivitamins 1 tab 12/27/19 09:00 12/27/19 08:13 Theragran M PO 1 tab DAILY BENSON Administration Levothyroxine Sodium 75 mcg 12/27/19 09:00 12/27/19 08:13 Synthroid PO 75 mcg DAILY BENSON Administration Liothyronine Sodium 15 mcg 12/27/19 09:00 12/27/19 09:10 Cytomel PO 15 mcg DAILY BENSON Administration Loratadine 10 mg 12/27/19 09:00 12/27/19 08:13 Claritin PO 10 mg DAILY BENSON Administration Sodium Chloride 10 ml 12/26/19 21:00 12/27/19 08:14 Flush - Normal Saline IVF Not Given Q12HR BENSON - Exam General Appearance: NAD, awake alert Eye: anicteric sclera ENT: normocephalic atraumatic, moist mucosa Neck: supple, symmetric, no lymphadenopathy Heart: RRR, no murmur, no gallops Respiratory: CTAB, no wheezes, no rales, no ronchi, normal chest expansion, no tachypnea Gastrointestinal: soft, non-tender, no guarding, no rigidity Extremities: 1+ LE edema Skin: no lesions, no rashes Neurological: cranial nerve grossly intact, no focal deficits Musculoskeletal: generalized weakness Psychiatric: normal affect, normal behavior, A&O x 3 Hosp A/P (1) UTI (urinary tract infection) Status: Acute Qualifiers: Urinary tract infection type: acute cystitis Hematuria presence: without hematuria Qualified Code(s): N30.00 - Acute cystitis without hematuria (2) CLAUDIO (acute kidney injury) Code(s): N17.9 - ACUTE KIDNEY FAILURE, UNSPECIFIED Status: Acute (3) HTN (hypertension) Code(s): I10 - ESSENTIAL (PRIMARY) HYPERTENSION Status: Acute (4) Liver masses Code(s): R16.0 - HEPATOMEGALY, NOT ELSEWHERE CLASSIFIED Status: Acute (5) Depression Code(s): F32.9 - MAJOR DEPRESSIVE DISORDER, SINGLE EPISODE, UNSPECIFIED Status : Acute (6) Arthritis Code(s): M19.90 - UNSPECIFIED OSTEOARTHRITIS, UNSPECIFIED SITE Status: Acute (7) Hypothyroid Code(s): E03.9 - HYPOTHYROIDISM, UNSPECIFIED Status: Acute - Plan Plan: medical unit oncology consultation, recommendations appreciated IV antibiotics for urinary tract infection IV fluid resuscitation for renal insufficiency, significant improvement replace electrolytes as needed avoid NSAIDs and nephro toxins that can worsen renal function plan for liver biopsy tomorrow continue other home medications as able blood pressure control blood sugar control G.I. prophylaxis DVT prophylaxis
--- NOTE | 2019-12-27 13:17 | PRG ---
DATE OF SERVICE: 12/27/2019 SUBJECTIVE: Patient was seen and examined at bedside and overnight events noted. Patient denies any shortness of breath or chest pain or palpitation. No history of nausea or vomiting or diarrhea or fever or chills or cramps. OBJECTIVE: GENERAL: This is a well-built female, in no apparent distress. VITAL SIGNS: Temperature 98.0. Heart rate 67. Respiratory rate 18. Blood pressure 125/77. HEENT: Atraumatic, normocephalic. Oral mucosa is moist NECK: Supple. CARDIOVASCULAR: S1, S2 heard. Rate and rhythm regular. RESPIRATORY: Clear to auscultation. GASTROINTESTINAL: Abdomen is soft. MUSCULOSKELETAL: No tenderness. No edema. DERMATOLOGIC: No skin rash. NEUROLOGIC: Alert and awake and oriented X3. No focal neurologic deficits. Moving all the extremities. PSYCHIATRIC: Mood and affect normal. LABORATORY DATA: Potassium 3.6, BUN is 29, creatinine is 2.4. ASSESSMENT AND PLAN: 1. Acute kidney injury. Monitor labs. 2. Nonobstructive renal calculi. 3. Hypercalcemia. 4. Edema. 5. History of hypertension. 6. Acidosis. Monitor labs and continue IV fluids. 7. Prognosis guarded. Job ID: [id number]
[2019-12-27] MEDS: Potassium Chloride 20 MEQ TAB PO SCH ×2 (13:30→21:37)
[2019-12-27] MEDS: SODIUM BICARBONATE IV SCH (14:21)
[2019-12-27] MEDS: POTASSIUM ACETATE IV SCH (14:21)
[2019-12-27] MEDS: SODIUM CHLORIDE 0.45% IV SCH (14:21)
[2019-12-27] MEDS: cefTRIAXone\\ROCEPHIN 1 GM in Sodium Chloride 0.9% 100 ML IVPB SCH (17:40)
[2019-12-27] MEDS: Docusate 100 MG CAP PO SCH (21:21)
[2019-12-27] MEDS: Melatonin 3 MG TAB PO PRN (22:39)
[2019-12-28] MEDS: SODIUM BICARBONATE IV SCH ×2 (04:02→11:49)
[2019-12-28] MEDS: SODIUM CHLORIDE 0.45% IV SCH ×2 (04:02→11:49)
[2019-12-28] MEDS: POTASSIUM ACETATE IV SCH ×2 (04:02→11:49)
[2019-12-28] MEDS: buPROPion HCl 100 MG TAB PO SCH (08:47)
[2019-12-28] MEDS: Multivitamin W/ Minerals 1 TAB PO SCH (08:47)
[2019-12-28] MEDS: Levothyroxine Sodium 75 MCG TAB PO SCH (08:47)
[2019-12-28] MEDS: Docusate 100 MG CAP PO SCH ×2 (08:47→20:05)
[2019-12-28] MEDS: Loratadine 10 MG TAB PO SCH (08:47)
[2019-12-28] MEDS: Liothyronine Sodium 5 MCG TAB PO SCH (08:47)
[2019-12-28] MEDS: Heparin 5,000 UNITS/ML VIAL SC SCH ×3 (08:48→20:05)
[2019-12-28] MEDS: Calcium Carbonate 500 MG TAB PO SCH ×3 (08:48→17:38)
[2019-12-28] MEDS ORDERED: Fentanyl 100 MCG/2 ML VIAL ONE (10:21)
[2019-12-28] MEDS ORDERED: Sodium Bicarbonate 2.5 MEQ/5 ML VIAL ONE (10:21)
[2019-12-28] MEDS ORDERED: Midazolam HCl 2 mg/2 ml Vial ONE (10:21)
[2019-12-28] MEDS: HYDROcodone/Acetaminophen 5/325 mg Tablet PO PRN ×2 (11:50→19:56)
[2019-12-28] MEDS: Senokot S 8.6-50 MG TAB PO PRN (11:50)
--- NOTE | 2019-12-28 12:07 | CT ---
CT-guided liver mass biopsy Conscious sedation: At least 20 minutes spent with the patient for conscious sedation. FINDINGS: After explaining the procedure and answering all questions, limited imaging of the upper ab domen was performed. Sterile technique, buffered local anesthesia, CT guidance, conscious sedation, and a right anterolateral approach were used to carefully advance a 17-gauge trocar needle into one o f the large hypodense masses of the liver. A total of 2 18-gauge core biopsy specimens were obtained and submitted to DrMarjorie: From pathology who confirmed specimen adequacy. Needle was removed. Postprocedure imaging shows no evidence of complication. Patient tolerated the pr ocedure well and was returned in unchanged condition. IMPRESSION: Technically successful CT-guided biopsy of liver mass. Pathology is pending.
--- NOTE | 2019-12-28 14:07 | PDOC.HOSPP ---
- Subjective Subjective: Seen and examined. Back from liver biopsy. Minimal pain. She is having constipation type pains. We have added and adjusted bowel regimen. Recommended limiting opiate use. Called her son Juan Luis at [phone], no answer, voicemail was left. - Objective Vital Signs & Weight: Vital Signs (12 hours) Temp Pulse Resp BP Pulse Ox 12/28/19 08:00 95 12/28/19 07:17 98.1 F 74 18 124/67 95 Weight Weight 145 lb 1.6 oz I&O: 12/27/19 12/28/19 12/29/19 06:59 06:59 06:59 Intake Total 840 Balance 840 Result Diagrams: 12/26/19 06:37 12/27/19 12:36 Radiology Reviewed by me: Yes Hospitalist ROS - Review of Systems All other systems reviewed; all pertinent +/- noted in HPI/Subj - Medication Medications: Active Medications Generic Name Dose Route Start Last Admin Trade Name Freq PRN Reason Stop Dose Admin Hydrocodone Bitart/Acetaminophen 1 tab 12/26/19 10:52 12/28/19 11:50 [place] 5/325 PO 1 tab Q4H PRN Administration Moderate to Severe Pain (6-10) Bupropion HCl 300 mg 12/27/19 09:00 12/28/19 08:47 Wellbutrin PO 300 mg DAILY BENSON Administration Calcium Carbonate 500 mg 12/26/19 12:00 12/28/19 13:12 Oscal-500 PO Not Given TID-[facility] Docusate Sodium 100 mg 12/27/19 21:00 12/28/19 08:47 Colace PO 100 mg BID BENSON Administration Heparin Sodium (Porcine) 5,000 units 12/25/19 21:00 12/28/19 08:48 Heparin SC Not Given TID BENSON Ceftriaxone Sodium 1 gm/ 100 mls @ 200 mls/hr 12/26/19 18:00 12/27/19 17:40 Sodium Chloride IVPB 12/29/19 18:01 100 mls Q24HR@1800 BENSON Administration Sodium Bicarbonate 50 meq/ 1,070 mls @ 100 mls/hr 12/27/19 13:11 12/28/19 11: 49 Potassium Acetate 40 meq/ IV Not Given Sodium Chloride .[id number] [facility] Iron/Minerals/Multivitamins 1 tab 12/27/19 09:00 12/28/19 08:47 Theragran M PO 1 tab DAILY BENSON Administration Levothyroxine Sodium 75 mcg 12/27/19 09:00 12/28/19 08:47 Synthroid PO 75 mcg DAILY BENSON Administration Liothyronine Sodium 15 mcg 12/27/19 09:00 12/28/19 08:47 Cytomel PO 15 mcg DAILY BENSON Administration Loratadine 10 mg 12/27/19 09:00 12/28/19 08:47 Claritin PO 10 mg DAILY BENSON Administration Melatonin 3 mg 12/26/19 10:55 12/27/19 22:39 Melatonin PO 3 mg HS PRN Administration Insomnia Senna/Docusate Sodium 2 tab 12/25/19 19:59 12/28/19 11:50 Senokot S PO 2 tab BID PRN Administration Constipation Sodium Chloride 10 ml 12/26/19 21:00 12/28/19 08:48 Flush - Normal Saline IVF Not Given Q12HR BNESON - Exam General Appearance: NAD, awake alert Eye: PERRL ENT: normocephalic atraumatic Neck: supple, symmetric, no lymphadenopathy Heart: no murmur, no gallops, no rubs Respiratory: CTAB, no wheezes, no rales, no ronchi, normal chest expansion Gastrointestinal: soft, non-tender, no guarding, no rigidity Gastrointestinal - other findings: Significant stool burden. Liver biopsy site with small clean/ dry bandage Extremities: no edema Skin: no rashes Neurological: cranial nerve grossly intact, no focal deficits Musculoskeletal: generalized weakness Psychiatric: A&O x 3 Hosp A/P (1) UTI (urinary tract infection) Status: Acute Qualifiers: Urinary tract infection type: acute cystitis Hematuria presence: without hematuria Qualified Code(s): N30.00 - Acute cystitis without hematuria (2) CLAUDIO (acute kidney injury) Code(s): N17.9 - ACUTE KIDNEY FAILURE, UNSPECIFIED Status: Acute (3) HTN (hypertension) Code(s): I10 - ESSENTIAL (PRIMARY) HYPERTENSION Status: Acute (4) Liver masses Code(s): R16.0 - HEPATOMEGALY, NOT ELSEWHERE CLASSIFIED Status: Acute (5) Depression Code(s): F32.9 - MAJOR DEPRESSIVE DISORDER, SINGLE EPISODE, UNSPECIFIED Status : Acute (6) Arthritis Code(s): M19.90 - UNSPECIFIED OSTEOARTHRITIS, UNSPECIFIED SITE Status: Acute (7) Hypothyroid Code(s): E03.9 - HYPOTHYROIDISM, UNSPECIFIED Status: Acute - Plan Plan: medical unit oncology consultation, recommendations appreciated IV antibiotics for urinary tract infection IV fluid resuscitation for renal insufficiency, significant improvement replace electrolytes as needed avoid NSAIDs and nephro toxins that can worsen renal function S/p liver biopsy on 12/27 - Pathology report pending continue other home medications as able blood pressure control blood sugar control G.I. prophylaxis DVT prophylaxis
--- NOTE | 2019-12-28 14:34 | PDOC.MOPN ---
Interval History: mild RUQ discomfort. Tolerated liver biopsy well. - Vital Signs Vital Signs: Vital Signs (12 hours) Temp Pulse Resp BP Pulse Ox 12/28/19 08:00 95 12/28/19 07:17 98.1 F 74 18 124/67 95 Weight Weight 145 lb 1.6 oz - Physical Exam General: Alert, Oriented x3, No acute distress HEENT: Atraumatic, PERRLA, EOMI, Mucous membr. moist/pink Lungs: Clear to auscultation, Normal air movement Cardiovascular: Regular rate, Normal S1, Normal S2, No murmurs, Gallops, Rubs Abdomen: Other Extremities: No clubbing, No cyanosis, No edema, Normal pulses, No tenderness/ swelling Skin: No rashes, No breakdown, No significant lesion Neurological: Normal gait, Normal speech, Strength at 5/5 X4 ext, Normal tone, Sensation intact, Cranial nerves 3-12 NL, Reflexes 2+ Psych/Mental Status: Mental status NL, Mood NL - Labs Result Diagrams: 12/26/19 06:37 12/27/19 12:36 Status: lab reviewed by me A/P - Problem (1) Liver masses Current Visit: Yes Code(s): R16.0 - HEPATOMEGALY, NOT ELSEWHERE CLASSIFIED Status: Acute - Plan Plan: liver biopsy completed, pathology pending Patient could go home from our perspective and follow-up as outpatient.
--- NOTE | 2019-12-28 14:53 | PDOC.EVN ---
Event Note - Event Note Event Note: Discussed case with patients son Juan Luis at [phone]. Patient son tells me that his mother has had a long history of opioid addiction independence. Benzodiazepine addiction and dependence. He believes that she is unsafe at home and he is requesting her to be evaluated for rehabilitation at snf facility. He requested we wean/stop her opiate medications. With her having a liver biopsy today, I recommended that we start weaning or stopping opiates tomorrow. When I discussed this with the patient this morning she denies opiate addiction. Family to consider drug and alcohol rehab as outpatient, if the patient is willing.
[2019-12-28] MEDS: cefTRIAXone\\ROCEPHIN 1 GM in Sodium Chloride 0.9% 100 ML IVPB SCH (17:38)
[2019-12-29] MEDS: Melatonin 3 MG TAB PO PRN ×2 (00:02→20:17)
[2019-12-29] MEDS: HYDROcodone/Acetaminophen 5/325 mg Tablet PO PRN ×3 (03:19→18:28)
[2019-12-29] MEDS: Multivitamin W/ Minerals 1 TAB PO SCH (09:12)
[2019-12-29] MEDS: Heparin 5,000 UNITS/ML VIAL SC SCH ×3 (09:12→20:16)
[2019-12-29] MEDS: Loratadine 10 MG TAB PO SCH (09:12)
[2019-12-29] MEDS: Calcium Carbonate 500 MG TAB PO SCH ×3 (09:12→17:49)
[2019-12-29] MEDS: Docusate 100 MG CAP PO SCH ×2 (09:12→20:17)
[2019-12-29] MEDS: Levothyroxine Sodium 75 MCG TAB PO SCH (09:12)
[2019-12-29] MEDS: Liothyronine Sodium 5 MCG TAB PO SCH (09:13)
[2019-12-29] MEDS: buPROPion HCl 100 MG TAB PO SCH (09:13)
[2019-12-29] MEDS: Senokot S 8.6-50 MG TAB PO PRN (11:01)
--- NOTE | 2019-12-29 14:57 | PDOC.HOSPP ---
- Subjective Encounter Date: 12/29/19 Encounter Time: 14:56 Subjective: Patient in chair, requests increase in pain medication due to chronic abdominal pain, no change in acute pain or pain at biopsy site, no chest pain or shortness of breath. - Objective Vital Signs & Weight: Vital Signs (12 hours) Temp Pulse Resp BP Pulse Ox 12/29/19 08:00 94 L 12/29/19 07:55 97.5 F L 65 18 127/84 94 L Weight Weight 145 lb 1.6 oz I&O: 12/28/19 12/29/19 12/30/19 06:59 06:59 06:59 Intake Total 840 560 240 Balance 840 560 240 Result Diagrams: 12/26/19 06:37 12/27/19 12:36 Hospitalist ROS - Medication Medications: Active Medications Generic Name Dose Route Start Last Admin Trade Name Freq PRN Reason Stop Dose Admin Hydrocodone Bitart/Acetaminophen 1 tab 12/28/19 14:37 12/29/19 11:01 [place] 5/325 PO 1 tab Q8H PRN Administration Moderate to Severe Pain (6-10) Bupropion HCl 300 mg 12/27/19 09:00 12/29/19 09:13 Wellbutrin PO 300 mg DAILY BENSON Administration Calcium Carbonate 500 mg 12/26/19 12:00 12/29/19 11:02 Oscal-500 PO 500 mg TID-WM BENSON Administration Diphenhydramine HCl 25 mg 12/26/19 10:55 12/29/19 00:05 Benadryl PO 25 mg Q6H PRN Administration Itching & Insomnia Docusate Sodium 100 mg 12/27/19 21:00 12/29/19 09:12 Colace PO 100 mg BID BENSON Administration Heparin Sodium (Porcine) 5,000 units 12/25/19 21:00 12/29/19 09:12 Heparin SC 5,000 units TID BENSON Administration Ceftriaxone Sodium 1 gm/ 100 mls @ 200 mls/hr 12/26/19 18:00 12/28/19 17:38 Sodium Chloride IVPB 12/29/19 18:01 100 mls Q24HR@1800 BENSON Administration Iron/Minerals/Multivitamins 1 tab 12/27/19 09:00 12/29/19 09:12 Theragran M PO 1 tab DAILY BENSON Administration Levothyroxine Sodium 75 mcg 12/27/19 09:00 12/29/19 09:12 Synthroid PO 75 mcg DAILY BENSON Administration Liothyronine Sodium 15 mcg 12/27/19 09:00 12/29/19 09:13 Cytomel PO 15 mcg DAILY BENSON Administration Loratadine 10 mg 12/27/19 09:00 12/29/19 09:12 Claritin PO 10 mg DAILY BENSON Administration Melatonin 3 mg 12/26/19 10:55 12/29/19 00:02 Melatonin PO 3 mg HS PRN Administration Insomnia Senna/Docusate Sodium 2 tab 12/25/19 19:59 12/29/19 11:01 Senokot S PO 2 tab BID PRN Administration Constipation Sodium Chloride 10 ml 12/26/19 21:00 12/29/19 09:13 Flush - Normal Saline IVF 10 ml Q12HR BENSON Administration - Exam General Appearance: NAD, awake alert Eye: PERRL, anicteric sclera ENT: normocephalic atraumatic, no oropharyngeal lesions, moist mucosa Neck: supple, symmetric, no JVD, no thyromegaly, no lymphadenopathy, no carotid bruit Heart: RRR, no murmur, no gallops, no rubs, normal peripheral pulses Respiratory: CTAB, no wheezes, no rales, no ronchi, normal chest expansion, no tachypnea, normal percussion Gastrointestinal: soft, non-tender, non-distended, normal bowel sounds, no palpable masses, no hepatomegaly, no splenomegaly, no bruit Gastrointestinal - other findings: bandage at biopsy site Extremities: no cyanosis, no clubbing, no edema Skin: normal turgor, no lesions, no rashes Neurological: cranial nerve grossly intact, normal sensation to touch, no weakness, no focal deficits, no new deficit Musculoskeletal: normal tone, normal strength, no muscle wasting Psychiatric: normal affect, normal behavior, A&O x 3 Hosp A/P (1) CLAUDIO (acute kidney injury) Code(s): N17.9 - ACUTE KIDNEY FAILURE, UNSPECIFIED Status: Acute (2) Arthritis Code(s): M19.90 - UNSPECIFIED OSTEOARTHRITIS, UNSPECIFIED SITE Status: Acute (3) Depression Code(s): F32.9 - MAJOR DEPRESSIVE DISORDER, SINGLE EPISODE, UNSPECIFIED Status : Acute (4) HTN (hypertension) Code(s): I10 - ESSENTIAL (PRIMARY) HYPERTENSION Status: Acute (5) Hypothyroid Code(s): E03.9 - HYPOTHYROIDISM, UNSPECIFIED Status: Acute (6) Liver masses Code(s): R16.0 - HEPATOMEGALY, NOT ELSEWHERE CLASSIFIED Status: Acute (7) UTI (urinary tract infection) Status: Acute Qualifiers: Urinary tract infection type: acute cystitis Hematuria presence: without hematuria Qualified Code(s): N30.00 - Acute cystitis without hematuria (8) Migraine Code(s): G43.909 - MIGRAINE, UNSP, NOT INTRACTABLE, WITHOUT STATUS MIGRAINOSUS Status: Chronic Qualifiers: Migraine type: without aura Status migrainosus presence: without status migrainosus Intractability: not intractable Qualified Code(s): G43.009 - Migraine without aura, not intractable, without status migrainosus (9) Colitis Status: Acute (10) Status post laparoscopic colectomy Code(s): Z90.49 - ACQUIRED ABSENCE OF OTHER SPECIFIED PARTS OF DIGESTIVE TRACT Status: Acute (11) Hypokalemia Code(s): E87.6 - HYPOKALEMIA Status: Acute - Plan medical unit oncology consultation, recommendations appreciated IV antibiotics for urinary tract infection IV fluid resuscitation for renal insufficiency, significant improvement replace electrolytes as needed avoid NSAIDs and nephro toxins that can worsen renal function S/p liver biopsy on 12/27 - Pathology report pending continue other home medications as able blood pressure control blood sugar control G.I. prophylaxis DVT prophylaxis - no pain medications added for concern given conversation with family noted yesterday and history with pain medications. continue to monitor for objective findings. IVF on hold. recheck BMP given hypokalemia yesterday
[2019-12-29 15:40] LABS: Anion Gap 16 mmol/L (10-20); BUN (Urea Nitrogen) 12 mg/dL (9.8-20.1); Calc. Creatinine Clearance 65 mL/min (70-130); Calcium 9.2 mg/dL (7.8-10.44); Carbon Dioxide 22 mmol/L (23-31); Chloride 104 mmol/L (98-107); Estimated GFR-MDRD 62; Glucose 126 mg/dL (80-115); Magnesium 1.9 mg/dL (1.6-2.6); Potassium 3.8 mmol/L (3.5-5.1); Sodium 138 mmol/L (136-145)
[2019-12-29] MEDS: cefTRIAXone\\ROCEPHIN 1 GM in Sodium Chloride 0.9% 100 ML IVPB SCH (17:50)
[2019-12-29] MEDS ORDERED: Milk Of Magnesia 30 ML UDCUP PO PRN (17:59)
[2019-12-30] MEDS: HYDROcodone/Acetaminophen 5/325 mg Tablet PO PRN ×4 (01:29→17:48)
[2019-12-30] MEDS: Senokot S 8.6-50 MG TAB PO PRN (06:18)
[2019-12-30 06:25] LABS: Anion Gap 14 mmol/L (10-20); BUN (Urea Nitrogen) 11 mg/dL (9.8-20.1); Calc. Creatinine Clearance 73 mL/min (70-130); Calcium 9.4 mg/dL (7.8-10.44); Carbon Dioxide 23 mmol/L (23-31); Chloride 104 mmol/L (98-107); Estimated GFR-MDRD 71; Glucose 101 mg/dL (80-115); Magnesium 2.1 mg/dL (1.6-2.6); Potassium 4.4 mmol/L (3.5-5.1); Sodium 137 mmol/L (136-145)
[2019-12-30] MEDS: buPROPion HCl 100 MG TAB PO SCH (08:31)
[2019-12-30] MEDS: Levothyroxine Sodium 75 MCG TAB PO SCH (08:32)
[2019-12-30] MEDS: Loratadine 10 MG TAB PO SCH (08:32)
[2019-12-30] MEDS: Docusate 100 MG CAP PO SCH ×2 (08:32→20:15)
[2019-12-30] MEDS: Calcium Carbonate 500 MG TAB PO SCH ×3 (08:32→17:49)
[2019-12-30] MEDS: Multivitamin W/ Minerals 1 TAB PO SCH (08:32)
[2019-12-30] MEDS: Liothyronine Sodium 5 MCG TAB PO SCH (08:33)
[2019-12-30] MEDS: Heparin 5,000 UNITS/ML VIAL SC SCH ×3 (08:37→20:16)
[2019-12-30] MEDS ORDERED: Lorazepam 1 MG TAB PO SCH (09:45)
--- NOTE | 2019-12-30 09:52 | PDOC.MOPN ---
Interval History: Patient c/o RUQ abdominal pain. Sister at bedside. - Vital Signs Vital Signs: Vital Signs (12 hours) Temp Pulse Resp BP Pulse Ox 12/30/19 08:04 97.7 F 81 20 133/74 95 Weight Weight 145 lb 1.6 oz - Physical Exam General: Alert, Oriented x3, No acute distress HEENT: Atraumatic, PERRLA, EOMI, Mucous membr. moist/pink Lungs: Clear to auscultation, Normal air movement Cardiovascular: Regular rate, Normal S1, Normal S2, No murmurs, Gallops, Rubs Abdomen: Soft, Other (mild tenderness with palpation to RUQ) Extremities: No clubbing, No cyanosis, No edema, Normal pulses, No tenderness/ swelling Skin: No rashes, No breakdown, No significant lesion Neurological: Normal gait, Normal speech, Strength at 5/5 X4 ext, Normal tone, Sensation intact, Cranial nerves 3-12 NL, Reflexes 2+ Psych/Mental Status: Mental status NL, Mood NL - Labs Result Diagrams: 12/26/19 06:37 12/30/19 05:40 Lab results: Laboratory Results - last 24 hr 12/30/19 05:40: Sodium 137, Potassium 4.4, Chloride 104, Carbon Dioxide 23, Anion Gap 14, BUN 11, Creatinine 0.81, Estimated GFR (MDRD) 71, Glucose 101, Calcium 9.4, Magnesium 2.1 12/29/19 15:04: Sodium 138, Potassium 3.8, Chloride 104, Carbon Dioxide 22 L, Anion Gap 16, BUN 12, Creatinine 0.91, Estimated GFR (MDRD) 62, Glucose 126 H, Calcium 9.2, Magnesium 1.9 Status: lab reviewed by me A/P - Problem (1) Liver masses Current Visit: Yes Code(s): R16.0 - HEPATOMEGALY, NOT ELSEWHERE CLASSIFIED Status: Acute - Plan Plan: 1. Discussed with patient and sister that she has metastatic stage IV adenocarcinoma of liver. Path suggests upper GI versus pancreatobiliary. 2. Chest CT today 3. Consult GI for poss endoscopy 4. Son, Juan Luis, updated on path results and plan. Discussed pain medication adjustment and he agrees to plan. 5. Plan discussed with Dr. Flowers.
--- NOTE | 2019-12-30 11:39 | CT ---
CT Chest W Con History: Adenocarcinoma. Evaluate for metastatic disease. Comparison: None. Findings: Few scattered air cysts in the upper lobes with a peripheral air cysts in the right upper l obe. No suspicious pulmonary nodule. No pneumothorax. No effusion. Likely interposition of bowel between the right hemidiaphragm of the liver much less likely free intr aperitoneal gas. No metastatic mediastinal adenopathy. No pericardial fluid. Multiple hepatic masses. The aortic contour is nonaneurysmal. Old T12 compression deformity with retropulsion. No suspicious osteolytic or osteoblastic lesions. Abnormal dilatation of the pancreatic duct. Impression: 1. No intrathoracic metastatic disease. 2. Abnormal dilatation of the pancreatic duct. Pancreatic protocol MRI recommended.
[2019-12-30] MEDS ORDERED: Iopamidol-370 76% 500 ML 1 ML ONE (15:19)
--- NOTE | 2019-12-30 18:45 | CON ---
DATE OF CONSULTATION: 12/30/2019 CHIEF COMPLAINT: Abdominal pain. HISTORY OF PRESENT ILLNESS: Ms. Sutton is a 64-year-old woman who came to the emergency room due to leg pain. This has pretty much resolved. She has chronic dependence on opioids and benzodiazepines. She also reports right upper quadrant aching pain that has been pretty constant over the last couple of weeks, but intermittent over the last few months. She reports a prior hospitalization with acute pancreatitis several months ago. She has had no nausea or vomiting. No weight loss. No diarrhea, constipation, or blood in the stool. She reports a colonoscopy a few years ago by Dr. Landers. There is a pathology report from an ileocolonic anastomosis with transmural ischemic necrosis from 2014. She had gastric biopsies from [address] Landers from the office, that were normal. She had a CT scan of her abdomen when she came into the emergency room without contrast. This showed liver lesions. She had a biopsy performed 2 days ago, that showed adenocarcinoma with metastatic to liver. A CT of the chest was done today, that did not show any intrathoracic disease, but did show dilated pancreatic duct. PAST MEDICAL HISTORY: 1. Depression. 2. Anxiety. 3. Polysubstance dependence with opioids and benzodiazepines. 4. Pancreatitis. 5. History of alcohol abuse. PAST SURGICAL HISTORY: 1. Colon resection for ischemic necrosis of the colon. 2. Appendectomy. 3. Sinus surgery. 4. Upper and lower endoscopy in the past. FAMILY HISTORY: Negative for GI malignancy. SOCIAL HISTORY: A few drinks in the evenings, a few nights per week. Positive tobacco use, heavy. Prior use of opioids and benzodiazepines. ALLERGIES: CODEINE AND TRAMADOL. MEDICATIONS: 1. Wellbutrin. 2. Calcium carbonate. 3. Docusate. 4. Heparin subcutaneous. 5. Hydrocodone. 6. Levothyroxine. 7. Cytomel. 8. Claritin. REVIEW OF SYSTEMS: Negative x10 systems reviewed, except as stated in history of present illness. PHYSICAL EXAMINATION: VITAL SIGNS: Temperature is 97.7, pulse 81, and blood pressure 133/74. GENERAL: She is in no acute distress. Alert and oriented x3. LUNGS: Clear to auscultation bilaterally. HEART: Regular rate and rhythm without murmur. HEENT: Her eyes have no scleral icterus. Oropharynx is clear without lesions. No cervical or supraclavicular lymphadenopathy. ABDOMEN: Soft. Mild tenderness in the right upper quadrant without guarding. Bowel sounds are present. EXTREMITIES: No lower extremity edema. NEUROLOGIC: Cranial nerves are grossly intact. LABORATORY DATA: White blood cell count 8.2, hemoglobin 9.2, and platelets 228. INR 1.1. Creatinine 0.81, bilirubin 0.3, AST 83, ALT 86, alkaline phosphatase 481, and albumin 2.9. IMPRESSION: 1. Metastatic adenocarcinoma to the liver. 2. Abnormal CT scan of the abdomen. Pancreatic duct dilation is noted by CT. I suspect she has a pancreatic cancer primary; however, cholangiocarcinoma is also possible. She has had a noncontrast CT of her abdomen and the contrast-enhanced CT of her chest over this did not completely imaged the pancreas. MRI was recommended by Radiology to better image the pancreas; however, the patient has claustrophobia and require general anesthesia for last MRI. I will therefore start with a pancreas protocol CT. If a mass is identified, then if required by the Oncology for tissue diagnosis, then endoscopic ultrasound could then be performed. Of note, her CA-19-9 is 58,000. RECOMMENDATIONS: 1. CT pancreas protocol. 2. If this is nondiagnostic, then consideration for MRI of pancreas protocol possibly with total intravenous anesthesia. Job ID: [id number]
--- NOTE | 2019-12-30 19:23 | PDOC.HOSPP ---
- Subjective Encounter Date: 12/30/19 Encounter Time: 19:22 Subjective: Patient seen and examined for CLAUDIO/Liver mass. Pain still uncontrolled. No new complaints. No overnight events - Objective Vital Signs & Weight: Vital Signs (12 hours) Temp Pulse Resp BP Pulse Ox 12/30/19 08:04 97.7 F 81 20 133/74 95 Weight Weight 145 lb 1.6 oz I&O: 12/29/19 12/30/19 12/31/19 06:59 06:59 06:59 Intake Total 560 840 Balance 560 840 Result Diagrams: 12/26/19 06:37 12/30/19 05:40 Hospitalist ROS - Review of Systems Respiratory: denies: cough, dry, shortness of breath, hemoptysis, SOB with excertion, pleuritic pain, sputum, wheezing, other Cardiovascular: denies: chest pain, palpitations, orthopnea, paroxysmal noc. dyspnea, edema, light headedness, other Gastrointestinal: reports: abdominal pain (RUQ) - Medication Medications: Active Medications Generic Name Dose Route Start Last Admin Trade Name Freq PRN Reason Stop Dose Admin Hydrocodone Bitart/Acetaminophen 1 tab 12/30/19 09:36 12/30/19 17:48 [place] 5/325 PO 1 tab Q6H PRN Administration Mild-Moderate Pain (1-5) Bupropion HCl 300 mg 12/27/19 09:00 12/30/19 08:31 Wellbutrin PO 300 mg DAILY BENSON Administration Calcium Carbonate 500 mg 12/26/19 12:00 12/30/19 17:49 Oscal-500 PO 500 mg TID-WM BENSON Administration Diphenhydramine HCl 25 mg 12/26/19 10:55 12/29/19 00:05 Benadryl PO 25 mg Q6H PRN Administration Itching & Insomnia Docusate Sodium 100 mg 12/27/19 21:00 12/30/19 08:32 Colace PO 100 mg BID BENSON Administration Heparin Sodium (Porcine) 5,000 units 12/25/19 21:00 12/30/19 13:49 Heparin SC 5,000 units TID BENSON Administration Iron/Minerals/Multivitamins 1 tab 12/27/19 09:00 12/30/19 08:32 Theragran M PO 1 tab DAILY BENSON Administration Levothyroxine Sodium 75 mcg 12/27/19 09:00 12/30/19 08:32 Synthroid PO 75 mcg DAILY BENSON Administration Liothyronine Sodium 15 mcg 12/27/19 09:00 12/30/19 08:33 Cytomel PO 15 mcg DAILY BENSON Administration Loratadine 10 mg 12/27/19 09:00 12/30/19 08:32 Claritin PO 10 mg DAILY BENSON Administration Magnesium Hydroxide 30 ml 12/29/19 17:59 12/29/19 18:28 Milk Of Magnesium PO 30 ml DAILYPRN PRN Administration Constipation Melatonin 3 mg 12/26/19 10:55 12/29/19 20:17 Melatonin PO 3 mg HS PRN Administration Insomnia Senna/Docusate Sodium 2 tab 12/25/19 19:59 12/30/19 06:18 Senokot S PO 2 tab BID PRN Administration Constipation Sodium Chloride 10 ml 12/26/19 21:00 12/30/19 09:29 Flush - Normal Saline IVF 10 ml Q12HR BENSON Administration Sumatriptan Succinate 100 mg 12/26/19 10:52 12/30/19 06:18 Imitrex PO 100 mg Q2H PRN Administration Migraine Headache - Exam General Appearance: NAD Neck: supple, no JVD Heart: RRR, no gallops Respiratory: CTAB, no rales Gastrointestinal: soft, normal bowel sounds, no guarding, no rigidity Gastrointestinal - other findings: Rt sided tenderness Extremities: no cyanosis, no clubbing Psychiatric: normal affect, A&O x 3 Hosp A/P - Plan PT/OT, DVT proph w/heparin, DVT proph w/SCDs CLAUDIO on CKD 2 Hypokalemia Abn LFTs/Liver mass due to Malignancy ?primary Metabolic acidosis Anxiety Chronic pain syndrome Tobacco dep Renal calculi Migraine Diverticulosis E coli UTI - completed Atbx Hypothyroidism PLAN: GI/Oncology input appreciated AM labs Pain control Cont meds as above Ambulate
[2019-12-30] MEDS ORDERED: Polyethylene Glycol 3350 17 GM Packet PO PRN (19:36)
[2019-12-30] MEDS ORDERED: HYDROcodone/Acetaminophen 5/325 mg Tablet PO SCH (20:00)
[2019-12-30] MEDS: Melatonin 3 MG TAB PO PRN (20:17)
[2019-12-31] MEDS: HYDROcodone/Acetaminophen 5/325 mg Tablet PO PRN ×6 (00:16→23:39)
[2019-12-31 06:11] LABS: #Basophils 0.1 thou/uL (0.0-0.2); #Eosinphils 0.5 thou/uL (0.0-0.7); #Lymphocytes 2.4 thou/uL (1.20-3.40); #Monocytes 1.3 thou/uL (0.11-0.59); #Neutrophils 14.3 thou/uL (1.40-6.50); %Basophils 0.4 % (0.0-1.0); %Eosinophils 2.8 % (0.0-10.0); %Lymphocytes 12.8 % (21.0-51.0); %Monocytes 6.9 % (0.0-10.0); %Neutrophils 77.2 % (42.0-75.0); Hemoglobin 10.6 g/dL (12.0-16.0); Mean Corpuscular HGB CONC 33.3 g/dL (32.0-36.0); Mean Corpuscular Hemoglobin 33.3 pg (27.0-31.0); Mean Corpuscular Volume 99.9 fL (78.0-98.0); Mean Platelet Volume 6.9 fL (7.4-10.4); Platelet Count 406 thou/uL (130-400); RBC Distribution Width 14.1 % (11.5-14.5); Red Blood Cell (RBC) Count 3.17 mill/uL (4.20-5.40); White Blood Cell (WBC) Count 18.5 thou/uL (4.8-10.8)
[2019-12-31 06:32] LABS: ALT (SGPT) 166 U/L (8-55); AST (SGOT) 207 U/L (5-34); Albumin 3.5 g/dL (3.4-4.8); Alkaline Phosphatase 952 U/L (40-110); Anion Gap 13 mmol/L (10-20); BUN (Urea Nitrogen) 15 mg/dL (9.8-20.1); Bilirubin, Total 1.2 mg/dL (0.2-1.2); Calc. Creatinine Clearance 57 mL/min (70-130); Calcium 9.8 mg/dL (7.8-10.44); Carbon Dioxide 26 mmol/L (23-31); Chloride 103 mmol/L (98-107); Estimated GFR-MDRD 53; Globulin 2.5 g/dL (2.4-3.5); Glucose 99 mg/dL (80-115); Potassium 4.4 mmol/L (3.5-5.1); Sodium 138 mmol/L (136-145)
[2019-12-31] MEDS: Calcium Carbonate 500 MG TAB PO SCH ×3 (09:34→17:20)
[2019-12-31] MEDS: Liothyronine Sodium 5 MCG TAB PO SCH (09:36)
[2019-12-31] MEDS: Docusate 100 MG CAP PO SCH ×2 (09:38→21:03)
[2019-12-31] MEDS: Loratadine 10 MG TAB PO SCH (09:38)
[2019-12-31] MEDS: Levothyroxine Sodium 75 MCG TAB PO SCH (09:38)
[2019-12-31] MEDS: Heparin 5,000 UNITS/ML VIAL SC SCH ×3 (09:39→20:20)
[2019-12-31] MEDS: buPROPion HCl 100 MG TAB PO SCH (09:39)
[2019-12-31] MEDS: Multivitamin W/ Minerals 1 TAB PO SCH (09:39)
--- NOTE | 2019-12-31 14:05 | CT ---
ABDOMEN CT AND PELVIC CT WITH AND WITHOUT CONTRAST: HISTORY: Evaluate for pancreatic mass. COMPARISON: 12/25/2019, 12/28/2019, and 12/30/2019. FINDINGS: Redemonstration of extensive hepatic metastases. Spleen, adrenal glands, and kidneys have essentially stable attenuation/enhancement. No evidence of bowel obstruction. There is dilatation of the main pancreatic duct starting at the mid portion of the pancreatic body. In the junction of the head and proximal body of the pancreas extending into the proximal body of the pancreas is an ill-defined 2 cm x 1.1 cm mass. There is no evidence of extraparenchymal extension. There is evidence of a necrotic lymph node that is posterior to the body of the pancreas and portal vein. This lymph node causes significant narrowing of the portal vein. There is a second non-necrot ic lymph node adjacent to the superior mesenteric artery measuring 1.1 x 1.2 cm. There are no lytic or blastic lesions in the osseous structures. PELVIC CT WITH CONTRAST: There are enlarged left periaortic lymph node with fat stranding. Conglomeration of lymph node measu res 1.4 x 1.3 cm. Uterus and adnexal structures are unremarkable. Unremarkable urinary bladder. There are no lytic or blastic lesions within the osseous structures. IMPRESSION: 1. Intraparenchymal mass involving the junction of the head and body of the pancreas. There is asso ciated post-lesional dilatation of the main pancreatic duct. The mass appears to be confined to the parenchyma. 2. Retroperitoneal lymphadenopathy as described above. Necrotic lymph node does cause mass effect a nd narrowing of the main portal vein. 3. Diffuse hepatic metastases. POS: CET
--- NOTE | 2019-12-31 19:11 | PRG ---
DATE OF SERVICE: SUBJECTIVE: Ms. Sutton has no complaints today. No significant abdominal pain at this time. She had a fentanyl patch placed. She had a bowel movement that was normal two days ago. OBJECTIVE: VITAL SIGNS: Temperature 97.9, pulse 76, and blood pressure 117/66. GENERAL: She is in no acute distress. Alert and oriented x3. LUNGS: Clear to auscultation bilaterally. HEART: Regular rate and rhythm without murmur. ABDOMEN: Soft, nontender, nondistended. Bowel sounds are present. EXTREMITIES: No lower extremity edema. LABORATORY DATA: White blood cell count 18.5, hemoglobin 10.6, and platelets 406. INR 1.1. Bilirubin 1.2, AST 207, ALT 166, alkaline phosphatase 952. CA-19-9 is 48,000. IMAGING: CT scan shows a 2 cm mass between the neck and head of the pancreas with dilation of the pancreatic duct proximal to that mass. There is diffuse metastatic disease to the liver and lymph nodes in the region as well. IMPRESSION: 1. Metastatic pancreatic cancer. Pathology from the liver biopsy is consistent with pancreatic or biliary or upper GI origin. CA-19-9 is 50,000. There is a mass in the pancreas with evidence of metastatic disease to the liver. 2. Mild constipation, now starting . RECOMMENDATION: 1. Start scheduled MiraLAX daily and increase as needed. 2. She will discuss options regarding palliative chemotherapy with Oncology. 3. I will sign off. Please call if GI can be of assistance. Job ID: [id number]
[2019-12-31] MEDS ORDERED: Polyethylene Glycol 3350 17 GM Packet PO SCH (19:15)
[2019-12-31] MEDS ORDERED: CEFAZOLIN 2 GM in Premix Bag 1 BAG IVPB SCH (21:45)
[2019-12-31] MEDS ORDERED: Morphine 2 MG/ML SYRINGE SLOW IVP SCH (23:00)
--- NOTE | 2020-01-01 | PDOC.HOSPP ---
- Subjective Encounter Date: 12/31/19 Encounter Time: 10:00 - Objective Vital Signs & Weight: Vital Signs (12 hours) Temp Pulse Resp BP Pulse Ox 12/31/19 20:00 98.3 F 87 16 119/85 93 L Weight Weight 145 lb 1.6 oz I&O: 12/30/19 12/31/19 01/01/20 06:59 06:59 06:59 Intake Total 840 600 Balance 840 600 Result Diagrams: 12/31/19 05:40 12/31/19 05:40 Hospitalist ROS - Medication Medications: Active Medications Generic Name Dose Route Start Last Admin Trade Name Freq PRN Reason Stop Dose Admin Hydrocodone Bitart/Acetaminophen 2 tab 12/30/19 09:36 12/31/19 17:20 [place] 5/325 PO 2 tab Q6H PRN Administration Moderate to Severe Pain (6-10) Hydrocodone Bitart/Acetaminophen 1 tab 12/30/19 09:36 12/31/19 23:39 [place] 5/325 PO 1 tab Q6H PRN Administration Mild-Moderate Pain (1-5) Bupropion HCl 300 mg 12/27/19 09:00 12/31/19 09:39 Wellbutrin PO 300 mg DAILY BENSON Administration Calcium Carbonate 500 mg 12/26/19 12:00 12/31/19 17:20 Oscal-500 PO 500 mg TID-WM BENSON Administration Diphenhydramine HCl 25 mg 12/26/19 10:55 12/29/19 00:05 Benadryl PO 25 mg Q6H PRN Administration Itching & Insomnia Docusate Sodium 100 mg 12/27/19 21:00 12/31/19 21:03 Colace PO 100 mg BID BENSON Administration Fentanyl 12 mcg 12/31/19 11:00 12/31/19 11:56 Duragesic TD 12 mcg Q3D BENSON Administration Heparin Sodium (Porcine) 5,000 units 12/25/19 21:00 12/31/19 20:20 Heparin SC Not Given TID BENSON Iron/Minerals/Multivitamins 1 tab 12/27/19 09:00 12/31/19 09:39 Theragran M PO 1 tab DAILY BENSON Administration Levothyroxine Sodium 75 mcg 12/27/19 09:00 12/31/19 09:38 Synthroid PO 75 mcg DAILY BENSON Administration Liothyronine Sodium 15 mcg 12/27/19 09:00 12/31/19 09:36 Cytomel PO 15 mcg DAILY BENSON Administration Loratadine 10 mg 12/27/19 09:00 12/31/19 09:38 Claritin PO 10 mg DAILY BENSON Administration Magnesium Hydroxide 30 ml 12/29/19 17:59 12/29/19 18:28 Milk Of Magnesium PO 30 ml DAILYPRN PRN Administration Constipation Melatonin 3 mg 12/26/19 10:55 12/30/19 20:17 Melatonin PO 3 mg HS PRN Administration Insomnia Morphine Sulfate 2 mg 12/31/19 23:00 12/31/19 22:54 Morphine SLOW IVP 01/01/20 01:00 2 mg NOW BENSON Administration Senna/Docusate Sodium 2 tab 12/25/19 19:59 12/30/19 06:18 Senokot S PO 2 tab BID PRN Administration Constipation Sodium Chloride 10 ml 12/26/19 21:00 12/31/19 20:20 Flush - Normal Saline IVF Not Given Q12HR [facility] Sumatriptan Succinate 100 mg 12/26/19 10:52 12/30/19 06:18 Imitrex PO 100 mg Q2H PRN Administration Migraine Headache Hosp A/P - Plan CLAUDIO on CKD 2 Hypokalemia Abn LFTs/Liver mass due to Malignancy ?primary Metabolic acidosis Anxiety Chronic pain syndrome Tobacco dep Renal calculi Migraine Diverticulosis E coli UTI - completed Atbx Hypothyroidism PLAN: Add Fentanyl patch CT abd today Cont other meds as above
[2020-01-01] MEDS: HYDROcodone/Acetaminophen 5/325 mg Tablet PO PRN ×3 (05:14→20:40)
[2020-01-01 06:13] LABS: #Basophils 0.1 thou/uL (0.0-0.2); #Eosinphils 0.5 thou/uL (0.0-0.7); #Lymphocytes 1.7 thou/uL (1.20-3.40); #Monocytes 1.4 thou/uL (0.11-0.59); #Neutrophils 14.7 thou/uL (1.40-6.50); %Basophils 0.4 % (0.0-1.0); %Eosinophils 2.6 % (0.0-10.0); %Lymphocytes 9.4 % (21.0-51.0); %Monocytes 7.4 % (0.0-10.0); %Neutrophils 80.2 % (42.0-75.0); Hemoglobin 10.1 g/dL (12.0-16.0); Mean Corpuscular HGB CONC 32.6 g/dL (32.0-36.0); Mean Corpuscular Hemoglobin 33.2 pg (27.0-31.0); Mean Platelet Volume 7.1 fL (7.4-10.4); Platelet Count 413 thou/uL (130-400); RBC Distribution Width 14.3 % (11.5-14.5); Red Blood Cell (RBC) Count 3.04 mill/uL (4.20-5.40); White Blood Cell (WBC) Count 18.3 thou/uL (4.8-10.8)
[2020-01-01 06:39] LABS: ALT (SGPT) 191 U/L (8-55); AST (SGOT) 215 U/L (5-34); Albumin 3.3 g/dL (3.4-4.8); Alkaline Phosphatase 993 U/L (40-110); Anion Gap 13 mmol/L (10-20); BUN (Urea Nitrogen) 15 mg/dL (9.8-20.1); Bilirubin, Total 1.2 mg/dL (0.2-1.2); Calc. Creatinine Clearance 63 mL/min (70-130); Calcium 9.3 mg/dL (7.8-10.44); Carbon Dioxide 21 mmol/L (23-31); Chloride 104 mmol/L (98-107); Estimated GFR-MDRD 61; Globulin 2.5 g/dL (2.4-3.5); Glucose 102 mg/dL (80-115); Potassium 3.7 mmol/L (3.5-5.1); Protein, Total 5.8 g/dL (6.0-8.3); Sodium 134 mmol/L (136-145)
[2020-01-01] MEDS: Calcium Carbonate 500 MG TAB PO SCH ×3 (09:34→17:51)
[2020-01-01] MEDS: Heparin 5,000 UNITS/ML VIAL SC SCH ×2 (09:34→21:35)
[2020-01-01] MEDS ORDERED: Ondansetron PF 4 MG/2 ML Vial ONE (10:02)
[2020-01-01] MEDS ORDERED: PROPOFOL 200 MG/20 ML VIAL ONE (10:02)
[2020-01-01] MEDS ORDERED: Fentanyl 100 MCG/2 ML VIAL ONE ×2 (10:10→12:16)
[2020-01-01] MEDS ORDERED: Ketamine 50 MG/ML (10ML VIAL) ONE (11:12)
[2020-01-01] MEDS ORDERED: HYDROmorphone 0.5 MG/0.5 ML SYRINGE ONE (11:51)
--- NOTE | 2020-01-01 12:07 | CON ---
DATE OF CONSULTATION: 01/01/2020 HISTORY OF PRESENT ILLNESS: Ange Sutton is a 64-year-old female, well known to me. In 2014, she underwent right colon resection, laparoscopic for ischemic right colon. Several weeks postop, she developed a small leak requiring mini-laparotomy and revision of the anastomosis. Since then, she has done well. More recently, she has been diagnosed with metastatic pancreatic cancer. I have been asked to see her to place a Mediport this hospitalization to facilitate chemotherapy administration in the weeks to come. She is followed by Dr. Moya and Dr. Flowers. Seen by Dr. Moya in the hospital, followed by Dr. Flowers. ALLERGIES: TRAMADOL, CODEINE. SOCIAL HISTORY: Tobacco, less than a quarter pack per day. Alcohol, socially, a few drinks periodically. PAST SURGICAL HISTORY: Right colectomy, sinus surgery. PAST MEDICAL HISTORY: Metastatic pancreatic cancer. PHYSICAL EXAMINATION: VITAL SIGNS: Height 5 feet 3 inches. Temperature 98.2, pulse 73, blood pressure 114/78. HEAD, EARS, EYES, NOSE, AND THROAT: Unremarkable. LUNGS: Clear to auscultation. CARDIAC: Regular rate and rhythm without murmur or gallop. ABDOMEN: Mild tenderness. No rebound or guarding. EXTREMITIES: Unremarkable. LABORATORY DATA: White count 18 and hemoglobin 10. Sodium 134, bilirubin 1.2. AST and ALT 215 and 191, alkaline phosphatase 993. CA-19-9 of 48,392. ASSESSMENT AND PLAN: Metastatic pancreatic cancer, status post CT-guided biopsy to confirm. We will plan on placement of MediPort. She understands the risks and benefits and consents. Job ID: [id number]
[2020-01-01] MEDS ORDERED: Midazolam HCl 2 mg/2 ml Vial ONE (12:16)
[2020-01-01] MEDS ORDERED: Propofol 500 MG/50 ML VIAL ONE (12:17)
[2020-01-01] MEDS ORDERED: Famotidine/PF 20 mg/2ml Vial ONE (12:17)
[2020-01-01] MEDS ORDERED: PROPOFOL 20 ML ONE (12:17)
[2020-01-01] MEDS ORDERED: Lidocaine 1% w/Epinephrine 1:100K 20 ML VIAL ONE (12:19)
[2020-01-01] MEDS ORDERED: Bupivacaine PF 0.5% 30 ML VIAL ONE (12:19)
[2020-01-01] MEDS ORDERED: Acetaminophen 500 MG TAB PO PRN (12:43)
[2020-01-01] MEDS ORDERED: Ondansetron HCl/PF 4 MG/2 ML Vial IVP PRN (13:13)
[2020-01-01] MEDS ORDERED: Promethazine HCl 25 MG/ML VIAL SLOW IVP PRN (13:13)
[2020-01-01] MEDS ORDERED: Promethazine HCl 25 MG/ML VIAL IM PRN (13:13)
[2020-01-01] MEDS ORDERED: Morphine 4 MG/ML VIAL SLOW IVP PRN (13:59)
[2020-01-01] MEDS ORDERED: Polyethylene Glycol 3350 17 GM Packet PO SCH (14:15)
--- NOTE | 2020-01-01 14:22 | RAD ---
PORTABLE CHEST: Date: 01/01/2020 Time: 1416 hours HISTORY: Port-A-Cath placement. FINDINGS/IMPRESSION: Comparison made with exam of 12/25/2019. There has been interval placement of a right subclavian Port-A-Cath with tip in the projection of the SVC. No pneumothoraces are seen. POS: [facility]
[2020-01-01] MEDS: Loratadine 10 MG TAB PO SCH (15:45)
[2020-01-01] MEDS: Multivitamin W/ Minerals 1 TAB PO SCH (15:45)
[2020-01-01] MEDS: Levothyroxine Sodium 75 MCG TAB PO SCH (15:45)
[2020-01-01] MEDS: buPROPion HCl 100 MG TAB PO SCH (15:45)
[2020-01-01] MEDS: Liothyronine Sodium 5 MCG TAB PO SCH (15:45)
[2020-01-01] MEDS: Polyethylene Glycol 3350 17 GM Packet PO SCH (15:46)
--- NOTE | 2020-01-01 16:31 | OP ---
DATE OF PROCEDURE: 01/01/2020 PREOPERATIVE DIAGNOSIS: Metastatic pancreatic cancer in need of antineoplastic chemotherapy access. POSTOPERATIVE DIAGNOSIS: Metastatic pancreatic cancer in need of antineoplastic chemotherapy access. PROCEDURE PERFORMED: Right subclavian vein MediPort. ANESTHESIA: TIVA, local of 0.5% Marcaine with epinephrine 30 mL mixed with 1% Xylocaine with epinephrine 20 mL, low-profile MediPort placed. Fluoroscopy used. DESCRIPTION OF PROCEDURE: The patient was taken to the operating room, where under intravenous sedation in supine position, neck and chest were prepared with ChloraPrep and draped in routine fashion. Local anesthetic was infiltrated in the skin and subcutaneous tissue about the operative site, infraclavicular approach and right subclavian vein access with a trocar catheter, J-wire threaded, trocar catheter removed. Skin site was enlarged sharply and carried down through skin and subcutaneous tissue and subcutaneous pocket created with blunt and sharp dissection using cautery for hemostasis. Dilator and Peel-Away sheath placed over the J-wire in superior vena cava. Dilator and J-wire were removed. Catheter placed through the Peel-Away sheath, which was removed and then catheter tailored to length under fluoroscopic visualization. Tip placed in optimal position in the superior vena cava, catheter connected to the MediPort, which was placed in subcutaneous pocket and secured with 2 interrupted sutures of 3-0 Prolene. Subcutaneous tissue was approximated with 3-0 Monocryl, skin with subdermal 4-0 Monocryl, and [place] glue applied. MediPort, obtaining good return of venous blood and was flushed with heparinized saline solution. Final fluoroscopic images revealed good line placement. The patient tolerated the procedure well. Job ID: [id number]
[2020-01-01] MEDS ORDERED: cefTRIAXone\\ROCEPHIN 1 GM in Sodium Chloride 0.9% 100 ML IVPB SCH (20:00)
--- NOTE | 2020-01-01 20:02 | PDOC.HOSPP ---
- Subjective Encounter Date: 01/01/20 Encounter Time: 14:00 Subjective: Patient seen and examined for Pancreatic Ca. RUQ pain uncontrolled. s/p Mediport. No new complaints. No overnight events - Objective Vital Signs & Weight: Vital Signs (12 hours) Temp Pulse Resp BP Pulse Ox 01/01/20 19:48 98.9 F 80 20 103/67 90 L 01/01/20 13:45 98.4 F 83 18 104/72 97 01/01/20 08:45 98.2 F 73 16 114/78 94 L Weight Weight 145 lb 1.6 oz I&O: 12/31/19 01/01/20 01/02/20 06:59 06:59 06:59 Intake Total 600 Balance 600 Result Diagrams: 01/01/20 05:50 01/01/20 05:50 Hospitalist ROS - Review of Systems Respiratory: denies: cough, dry, shortness of breath, hemoptysis, SOB with excertion, pleuritic pain, sputum, wheezing, other Cardiovascular: denies: chest pain, palpitations, orthopnea, paroxysmal noc. dyspnea, edema, light headedness, other Gastrointestinal: denies: nausea, vomiting, abdominal pain, diarrhea, constipation, melena, hematochezia, other - Medication Medications: Active Medications Generic Name Dose Route Start Last Admin Trade Name Freq PRN Reason Stop Dose Admin Hydrocodone Bitart/Acetaminophen 2 tab 12/30/19 09:36 01/01/20 15:01 [place] 5/325 PO 2 tab Q6H PRN Administration Moderate to Severe Pain (6-10) Hydrocodone Bitart/Acetaminophen 1 tab 12/30/19 09:36 12/31/19 23:39 [place] 5/325 PO 1 tab Q6H PRN Administration Mild-Moderate Pain (1-5) Bupropion HCl 300 mg 12/27/19 09:00 01/01/20 15:45 Wellbutrin PO 300 mg DAILY BENSON Administration Calcium Carbonate 500 mg 12/26/19 12:00 01/01/20 17:51 [place]-500 PO 500 mg TID- BENSON Administration Diphenhydramine HCl 25 mg 12/26/19 10:55 12/29/19 00:05 Benadryl PO 25 mg Q6H PRN Administration Itching & Insomnia Iron/Minerals/Multivitamins 1 tab 12/27/19 09:00 01/01/20 15:45 Theragran M PO 1 tab DAILY BENSON Administration Levothyroxine Sodium 75 mcg 12/27/19 09:00 01/01/20 15:45 Synthroid PO 75 mcg DAILY BENSON Administration Liothyronine Sodium 15 mcg 12/27/19 09:00 01/01/20 15:45 Cytomel PO 15 mcg DAILY BENSON Administration Loratadine 10 mg 12/27/19 09:00 01/01/20 15:45 Claritin PO 10 mg DAILY BENSON Administration Magnesium Hydroxide 30 ml 12/29/19 17:59 12/29/19 18:28 Milk Of Magnesium PO 30 ml DAILYPRN PRN Administration Constipation Melatonin 3 mg 12/26/19 10:55 12/30/19 20:17 Melatonin PO 3 mg HS PRN Administration Insomnia Morphine Sulfate 4 mg 01/01/20 13:59 01/01/20 14:10 Morphine SLOW IVP 01/01/20 23:59 4 mg Q4H PRN Administration Severe Pain (7-10) Polyethylene Glycol 17 gm 01/01/20 09:00 01/01/20 15:46 Miralax PO Not Given DAILY BENSON Senna/Docusate Sodium 2 tab 12/25/19 19:59 12/30/19 06:18 Senokot S PO 2 tab BID PRN Administration Constipation Sodium Chloride 10 ml 12/26/19 21:00 01/01/20 15:46 Flush - Normal Saline IVF 10 ml Q12HR BENSON Administration Sumatriptan Succinate 100 mg 12/26/19 10:52 12/30/19 06:18 Imitrex PO 100 mg Q2H PRN Administration Migraine Headache - Exam General Appearance: NAD Heart: RRR, no gallops Respiratory: CTAB, no rales Gastrointestinal: non-distended, no guarding, no rigidity Extremities: no cyanosis Neurological: no new deficit Hosp A/P - Plan DVT proph w/SCDs Pancreatic CA CLAUDIO on CKD 2 Hypokalemia Abn LFTs/Liver mass Metabolic acidosis Anxiety Chronic pain syndrome Tobacco dep Renal calculi Migraine Diverticulosis E coli UTI - completed Atbx Hypothyroidism PLAN: Add IV Morphine PRN Cont Fentanyl patch Cont [place] PRN Cont Levothyroxine Case d/w Dr Flowers Cont other meds as above
[2020-01-01] MEDS: Senokot S 8.6-50 MG TAB PO SCH (20:41)
[2020-01-01] MEDS: Melatonin 3 MG TAB PO PRN (21:30)
[2020-01-01] MEDS: METHadone HCl 10 MG TAB PO SCH (21:31)
[2020-01-02] MEDS: HYDROcodone/Acetaminophen 5/325 mg Tablet PO PRN ×3 (03:06→18:38)
[2020-01-02] MEDS: METHadone HCl 10 MG TAB PO SCH ×3 (09:06→21:54)
[2020-01-02] MEDS: Calcium Carbonate 500 MG TAB PO SCH ×3 (09:06→16:12)
[2020-01-02] MEDS: buPROPion HCl 100 MG TAB PO SCH (09:06)
[2020-01-02] MEDS: Senokot S 8.6-50 MG TAB PO SCH ×2 (09:09→20:29)
[2020-01-02] MEDS: Levothyroxine Sodium 75 MCG TAB PO SCH (09:10)
[2020-01-02] MEDS: Loratadine 10 MG TAB PO SCH (09:10)
[2020-01-02] MEDS: Heparin 5,000 UNITS/ML VIAL SC SCH ×2 (09:10→20:30)
[2020-01-02] MEDS: Polyethylene Glycol 3350 17 GM Packet PO SCH ×2 (09:11→20:30)
[2020-01-02] MEDS: Multivitamin W/ Minerals 1 TAB PO SCH (09:32)
[2020-01-02] MEDS: Liothyronine Sodium 5 MCG TAB PO SCH (09:32)
[2020-01-02] MEDS: Docusate 100 MG CAP PO SCH (09:36)
--- NOTE | 2020-01-02 18:04 | PDOC.HOSPP ---
- Subjective Encounter Date: 01/02/20 Encounter Time: 08:00 Subjective: Patient seen and examined for Pancreatic Ca. Slept well. Pain slightly better controlled on Methadone. No other complaints. No overnight events - Objective Vital Signs & Weight: Vital Signs (12 hours) Temp Pulse Resp BP Pulse Ox 01/02/20 09:00 93 L 01/02/20 07:45 98.1 F 71 20 113/73 93 L Weight Weight 145 lb 1.6 oz I&O: 01/01/20 01/02/20 01/03/20 06:59 06:59 06:59 Intake Total 350 Balance 350 Result Diagrams: 01/01/20 05:50 01/01/20 05:50 Hospitalist ROS - Review of Systems Respiratory: denies: cough, dry, shortness of breath, hemoptysis, SOB with excertion, pleuritic pain, sputum, wheezing, other Cardiovascular: denies: chest pain, palpitations, orthopnea, paroxysmal noc. dyspnea, edema, light headedness, other - Medication Medications: Active Medications Generic Name Dose Route Start Last Admin Trade Name Freq PRN Reason Stop Dose Admin Hydrocodone Bitart/Acetaminophen 2 tab 12/30/19 09:36 01/02/20 10:17 [place] 5/325 PO 2 tab Q6H PRN Administration Moderate to Severe Pain (6-10) Hydrocodone Bitart/Acetaminophen 1 tab 12/30/19 09:36 12/31/19 23:39 [place] 5/325 PO 1 tab Q6H PRN Administration Mild-Moderate Pain (1-5) Bupropion HCl 300 mg 12/27/19 09:00 01/02/20 09:06 Wellbutrin PO 300 mg DAILY BENSON Administration Calcium Carbonate 500 mg 12/26/19 12:00 01/02/20 16:12 [place]-500 PO 500 mg TID-WM BENSON Administration Diphenhydramine HCl 25 mg 12/26/19 10:55 12/29/19 00:05 Benadryl PO 25 mg Q6H PRN Administration Itching & Insomnia Heparin Sodium (Porcine) 5,000 units 01/01/20 21:00 01/02/20 09:10 Heparin SC 5,000 units BID BENSON Administration Iron/Minerals/Multivitamins 1 tab 12/27/19 09:00 01/02/20 09:32 Theragran M PO 1 tab DAILY BENSON Administration Levothyroxine Sodium 75 mcg 12/27/19 09:00 01/02/20 09:10 Synthroid PO 75 mcg DAILY BENSON Administration Liothyronine Sodium 15 mcg 12/27/19 09:00 01/02/20 09:32 Cytomel PO 15 mcg DAILY BENSON Administration Loratadine 10 mg 12/27/19 09:00 01/02/20 09:10 Claritin PO 10 mg DAILY BENSON Administration Magnesium Hydroxide 30 ml 12/29/19 17:59 12/29/19 18:28 Milk Of Magnesium PO 30 ml DAILYPRN PRN Administration Constipation Melatonin 3 mg 12/26/19 10:55 01/01/20 21:30 Melatonin PO 3 mg HS PRN Administration Insomnia Methadone HCl 5 mg 01/02/20 14:00 01/02/20 14:12 Dolophine Hcl PO 5 mg Q8HR BENSON Administration Polyethylene Glycol 17 gm 01/01/20 09:00 01/02/20 09:11 Miralax PO 17 gm DAILY BENSON Administration Senna/Docusate Sodium 2 tab 12/25/19 19:59 12/30/19 06:18 Senokot S PO 2 tab BID PRN Administration Constipation Senna/Docusate Sodium 2 tab 01/01/20 21:00 01/02/20 09:09 Senokot S PO 2 tab BID BENSON Administration Sodium Chloride 10 ml 12/26/19 21:00 01/02/20 09:17 Flush - Normal Saline IVF 10 ml Q12HR BENSON Administration Sumatriptan Succinate 100 mg 12/26/19 10:52 12/30/19 06:18 Imitrex PO 100 mg Q2H PRN Administration Migraine Headache - Exam General Appearance: NAD, awake alert Neck: supple, no JVD Heart: RRR, no gallops Respiratory: no wheezes, no ronchi Gastrointestinal: soft, normal bowel sounds, no guarding, no rigidity Extremities: no cyanosis Neurological: no new deficit Hosp A/P - Plan DVT proph w/SCDs Pancreatic [place] CLAUDIO on CKD 2 Hypokalemia Abn LFTs/Liver mass due to Mets Metabolic acidosis Anxiety Chronic pain syndrome Tobacco dep Renal calculi Migraine Diverticulosis E coli UTI - completed Atbx Hypothyroidism PLAN: Methadone started Cont [place] PRN DC Fentanyl patch tomorrow Cont other meds as above Ambulate Treat constipation
[2020-01-02] MEDS ORDERED: Bisacodyl 10 MG SUPP PR PRN (18:09)
[2020-01-02] MEDS ORDERED: Acetaminophen 325 MG TAB PO SCH (20:15)
[2020-01-03] MEDS: HYDROcodone/Acetaminophen 5/325 mg Tablet PO PRN ×4 (00:27→20:10)
[2020-01-03] MEDS: Melatonin 3 MG TAB PO PRN ×2 (00:27→22:05)
[2020-01-03] MEDS: METHadone HCl 10 MG TAB PO SCH ×3 (05:25→22:04)
[2020-01-03] MEDS: buPROPion HCl 100 MG TAB PO SCH (08:40)
[2020-01-03] MEDS: Liothyronine Sodium 5 MCG TAB PO SCH (08:40)
[2020-01-03] MEDS: Levothyroxine Sodium 75 MCG TAB PO SCH (08:41)
[2020-01-03] MEDS: Senokot S 8.6-50 MG TAB PO SCH ×2 (08:41→20:09)
[2020-01-03] MEDS: Calcium Carbonate 500 MG TAB PO SCH ×3 (08:41→17:40)
[2020-01-03] MEDS: Heparin 5,000 UNITS/ML VIAL SC SCH ×2 (08:42→20:12)
[2020-01-03] MEDS: Polyethylene Glycol 3350 17 GM Packet PO SCH ×2 (08:42→20:08)
[2020-01-03] MEDS: Loratadine 10 MG TAB PO SCH (08:42)
[2020-01-03] MEDS: Multivitamin W/ Minerals 1 TAB PO SCH (08:42)
[2020-01-03] MEDS ORDERED: Bisacodyl 10 MG SUPP PR SCH (18:30)
--- NOTE | 2020-01-03 19:41 | RAD ---
Supine KUB: 01/03/2020 HISTORY: Abdominal pain FINDINGS: Supine imaging limits assessment for free intraperitoneal air and small bowel obstruction. The bowel gas pattern appears nonobstructed. Linear suture material noted within the lateral aspect of the right mid abdomen. IMPRESSION: No evidence for small bowel obstruction.
[2020-01-04] MEDS: HYDROcodone/Acetaminophen 5/325 mg Tablet PO PRN ×3 (01:52→13:24)
[2020-01-04] MEDS: METHadone HCl 10 MG TAB PO SCH ×2 (06:00→14:42)
--- NOTE | 2020-01-04 07:22 | PDOC.HOSPP ---
- Subjective Encounter Date: 01/03/20 Encounter Time: 16:00 Subjective: Patient seen and examined for Pancreatic Ca. Pain better controlled. No fever or chills. No BM x 2 days. No new complaints. No overnight events - Objective Vital Signs & Weight: Vital Signs (12 hours) Temp Pulse Resp BP Pulse Ox 01/04/20 03:52 96 01/03/20 20:00 99.1 F 76 18 115/76 96 Weight Weight 145 lb 1.6 oz I&O: 01/03/20 01/04/20 01/05/20 06:59 06:59 06:59 Intake Total 1050 1200 Balance 1050 1200 Result Diagrams: 01/01/20 05:50 01/01/20 05:50 Hospitalist ROS - Review of Systems Respiratory: denies: cough, dry, shortness of breath, hemoptysis, SOB with excertion, pleuritic pain, sputum, wheezing, other Cardiovascular: denies: chest pain, palpitations, orthopnea, paroxysmal noc. dyspnea, edema, light headedness, other Gastrointestinal: denies: nausea, vomiting, abdominal pain, diarrhea, constipation, melena, hematochezia, other - Medication Medications: Active Medications Generic Name Dose Route Start Last Admin Trade Name Freq PRN Reason Stop Dose Admin Hydrocodone Bitart/Acetaminophen 2 tab 12/30/19 09:36 01/04/20 01:52 [place] 5/325 PO 2 tab Q6H PRN Administration Moderate to Severe Pain (6-10) Hydrocodone Bitart/Acetaminophen 1 tab 12/30/19 09:36 12/31/19 23:39 [place] 5/325 PO 1 tab Q6H PRN Administration Mild-Moderate Pain (1-5) Bupropion HCl 300 mg 12/27/19 09:00 01/03/20 08:40 Wellbutrin PO 300 mg DAILY BENSON Administration Calcium Carbonate 500 mg 12/26/19 12:00 01/03/20 17:40 [place]-500 PO 500 mg TID-WM BENSON Administration Diphenhydramine HCl 25 mg 12/26/19 10:55 12/29/19 00:05 Benadryl PO 25 mg Q6H PRN Administration Itching & Insomnia Heparin Sodium (Porcine) 5,000 units 01/01/20 21:00 01/03/20 20:12 Heparin SC 5,000 units BID BENSON Administration Iron/Minerals/Multivitamins 1 tab 12/27/19 09:00 01/03/20 08:42 Theragran M PO 1 tab DAILY BENSON Administration Levothyroxine Sodium 75 mcg 12/27/19 09:00 01/03/20 08:41 Synthroid PO 75 mcg DAILY BENSON Administration Liothyronine Sodium 15 mcg 12/27/19 09:00 01/03/20 08:40 Cytomel PO 15 mcg DAILY BENSON Administration Loratadine 10 mg 12/27/19 09:00 01/03/20 08:42 Claritin PO 10 mg DAILY BENSON Administration Magnesium Hydroxide 30 ml 12/29/19 17:59 12/29/19 18:28 Milk Of Magnesium PO 30 ml DAILYPRN PRN Administration Constipation Melatonin 3 mg 12/26/19 10:55 01/03/20 22:05 Melatonin PO 3 mg HS PRN Administration Insomnia Methadone HCl 5 mg 01/02/20 14:00 01/04/20 06:00 Dolophine Hcl PO 5 mg Q8HR BENSON Administration Polyethylene Glycol 17 gm 01/02/20 21:00 01/03/20 20:08 Miralax PO 17 gm BID BENSON Administration Senna/Docusate Sodium 2 tab 12/25/19 19:59 12/30/19 06:18 Senokot S PO 2 tab BID PRN Administration Constipation Senna/Docusate Sodium 2 tab 01/01/20 21:00 01/03/20 20:09 Senokot S PO 2 tab BID BENSON Administration Sodium Chloride 10 ml 12/26/19 21:00 01/03/20 20:12 Flush - Normal Saline IVF 10 ml Q12HR BENSON Administration Sumatriptan Succinate 100 mg 12/26/19 10:52 12/30/19 06:18 Imitrex PO 100 mg Q2H PRN Administration Migraine Headache - Exam General Appearance: NAD Neck: supple, no JVD Respiratory: normal chest expansion Extremities: no edema Neurological: no new deficit Psychiatric: normal affect, A&O x 3 Hosp A/P - Plan DVT proph w/SCDs Pancreatic CA CLAUDIO on CKD 2 Hypokalemia Abn LFTs/Liver mass Metabolic acidosis Anxiety Chronic pain syndrome Tobacco dep Renal calculi Migraine Diverticulosis E coli UTI - completed Atbx Hypothyroidism Constipation PLAN: On Methadone benson with PRN [place] Cont Miralax/Sen-S Cont Levothyroxine Cont other meds as above DC in AM if stable
[2020-01-04] MEDS: Senokot S 8.6-50 MG TAB PO SCH (07:57)
[2020-01-04] MEDS: buPROPion HCl 100 MG TAB PO SCH (07:57)
[2020-01-04] MEDS: Levothyroxine Sodium 75 MCG TAB PO SCH (07:58)
[2020-01-04] MEDS: Loratadine 10 MG TAB PO SCH (07:58)
[2020-01-04] MEDS: Calcium Carbonate 500 MG TAB PO SCH ×2 (07:58→13:26)
[2020-01-04] MEDS: Multivitamin W/ Minerals 1 TAB PO SCH (07:58)
[2020-01-04] MEDS: Liothyronine Sodium 5 MCG TAB PO SCH (07:58)
[2020-01-04] MEDS: Heparin 5,000 UNITS/ML VIAL SC SCH (07:59)
[2020-01-04] MEDS: Polyethylene Glycol 3350 17 GM Packet PO SCH (07:59)
--- NOTE | 2020-01-04 10:13 | PDOC.MOPN ---
Interval History: pain controlled, eating well. wants to go home. - Vital Signs Vital Signs: Vital Signs (12 hours) Temp Pulse Resp BP Pulse Ox 01/04/20 08:24 97.5 F L 68 20 118/82 92 L 01/04/20 08:00 97.8 F 76 18 119/74 93 L 01/04/20 03:52 96 Weight Weight 145 lb 1.6 oz - Physical Exam General: Alert, Oriented x3, No acute distress HEENT: Atraumatic, PERRLA, EOMI, Mucous membr. moist/pink Lungs: Clear to auscultation, Normal air movement Cardiovascular: Regular rate, Normal S1, Normal S2, No murmurs, Gallops, Rubs Abdomen: Normal bowel sounds, Soft, No tenderness, No hepatospenomegaly, No masses Extremities: No clubbing, No cyanosis, No edema, Normal pulses, No tenderness/ swelling Skin: No rashes, No breakdown, No significant lesion Neurological: Normal gait, Normal speech, Strength at 5/5 X4 ext, Normal tone, Sensation intact, Cranial nerves 3-12 NL, Reflexes 2+ Psych/Mental Status: Mental status NL, Mood NL - Labs Result Diagrams: 01/01/20 05:50 01/01/20 05:50 Status: lab reviewed by me A/P - Problem (1) Liver masses Current Visit: Yes Code(s): R16.0 - HEPATOMEGALY, NOT ELSEWHERE CLASSIFIED Status: Acute (2) Pancreatic adenocarcinoma Current Visit: Yes Code(s): C25.9 - MALIGNANT NEOPLASM OF PANCREAS, UNSPECIFIED Status: Acute - Plan Plan: 1. Patient ready to discharge, she is planning to live in [place] with son. 2. Encouraged to find Medical Oncologist in [place] as treatment will be weekly and she will need close follow-up 3. Methadone and [place] will be sent to pharmacy in [place], she will call our office with Pharmacy. 30 day supply only 4. She has follow-up with Dr. Flowers next week and will cancel once she has found Oncologist in [place]
[2020-01-04 11:48] VITALS: TEMP 97.8
[2020-01-04 11:53] VITALS: BP 93/64
--- NOTE | 2020-01-04 16:07 | DIS ---
DATE OF ADMISSION: 12/25/2019 DATE OF DISCHARGE: 01/04/2020 DISCHARGE DISPOSITION: Home. FOLLOWUP: 1. Follow up with Oncology Clinic as scheduled. 2. Follow up with primary care physician, Dr. Kai Olson next week. 3. Follow up with Dr. David Carter as scheduled. ALLERGIES: THE PATIENT IS ALLERGIC TO CODEINE AND TRAMADOL. DISCHARGE MEDICATIONS: 1. Methadone 5 mg every 8 hourly. 2. [place] as needed for pain. 3. Senokot-S 2 tablets b.i.d. 4. MiraLAX 17 g b.i.d. 5. All other home medications were left unchanged. 6. The patient was seen and examined on the day of discharge. Denies any new complaints. No chest pain, shortness of breath, or palpitations reported. Pain is controlled. INPATIENT CONSULTANTS: 1. Oncology, Dr. Flowers. 2. Gastroenterology, Dr. Og. 3. General Surgery, Dr. Carter. 4. Nephrology Dr. Lindsey. INPATIENT PROCEDURES: 1. On 01 January 2020, the patient underwent right subclavian vein MediPort. 2. on 28 December 2019, the patient underwent CT-guided biopsy of liver mass. DIAGNOSTIC TESTS: 1. On 25 December 2019, the patient underwent CT scan of the abdomen and pelvis that showed small nonobstructing bilateral renal calculi with possible metastatic disease in the liver. 2. Repeat CT scan of the abdomen and pelvis with and without contrast on 31 December 2019 showed an intraparenchymal mass involving the junction of the head and the body of the pancreas with some associated post lesional dilatation of the main pancreatic duct with retroperitoneal lymphadenopathy and diffuse hepatic metastasis. LABORATORY FINDINGS: Creatinine on admission was 4.19, at discharge 0.93. Bicarbonate on admission was 14. AST maximum was 215, ALT maximum was 191, alkaline phosphatase 993. CA-19-9 was 58,166. CEA was 75. Urinalysis showed E coli, sensitive to ceftriaxone. BRIEF HOSPITAL COURSE: The patient is a 64-year-old female, who presented to the emergency room with abdominal discomfort. Workup in the emergency room was consistent with significant acute kidney injury with metabolic acidosis and UTI. She was started on IV fluids along with empiric antibiotics with good improvement. Her renal function stabilized. Metabolic acidosis improved. CT scan of the abdomen noncontrast was consistent with liver mass. Liver biopsy was obtained that showed metastatic adenocarcinoma. She then underwent a CT scan of the abdomen and pelvis with contrast that was consistent with metastatic pancreatic cancer. She was evaluated by Oncology Service. MediPort has been placed. She has been started on pain regimen per Oncology recommendation with methadone and [place] as needed. Her pain has significantly improved. She appears stable for discharge. FINAL DIAGNOSES: 1. Metastatic pancreatic cancer. 2. Acute kidney injury on chronic kidney disease stage 2 with metabolic acidosis. 3. Hypokalemia. 4. Liver mass causing abnormal LFTs. 5. Anxiety. 6. Chronic pain syndrome. 7. Tobacco dependence. 8. Bilateral renal calculi. 9. Migraine. 10. Diverticulosis. 11. Escherichia coli urinary tract infection, completed antibiotics. 12. Hypothyroidism. 13. Constipation, resolved. 14. The patient understands the above plan of care. Job ID: [id number]
== END 2020-01-04 15:42 | disposition home or self-care (01) | DRG 982 ==
LOC: ERS 13:50 → T4-A 17:53
PROVIDERS: ADMIT Family Medicine; ATTEND Family Medicine
PROC: 0FB03ZX Excision of Liver, Percutaneous Approach, Diagnostic (ICD-10-PCS; 2019-12-28)
PROC: 0JH60WZ Insertion of Totally Implantable Vascular Access Device into Chest Subcutaneous Tissue and Fascia, Open Approach (ICD-10-PCS; principal; 2020-01-01)
PROC: 02HV33Z Insertion of Infusion Device into Superior Vena Cava, Percutaneous Approach (ICD-10-PCS; 2020-01-01)
PROC: B5181ZA Fluoroscopy of Superior Vena Cava using Low Osmolar Contrast, Guidance (ICD-10-PCS; 2020-01-01)
PROC: 3E03305 Introduction of Other Antineoplastic into Peripheral Vein, Percutaneous Approach (ICD-10-PCS; 2020-01-01)
DX: C25.9 Malignant neoplasm of pancreas, unspecified (principal); N17.9 Acute kidney failure, unspecified; E87.2 Acidosis; N39.0 Urinary tract infection, site not specified; N18.2 Chronic kidney disease, stage 2 (mild); E87.6 Hypokalemia; F41.9 Anxiety disorder, unspecified; G89.4 Chronic pain syndrome; N20.0 Calculus of kidney; E03.9 Hypothyroidism, unspecified; K59.00 Constipation, unspecified; G43.909 Migraine, unspecified, not intractable, without status migrainosus; E86.9 Volume depletion, unspecified; K57.90 Diverticulosis of intestine, part unspecified, without perforation or abscess without bleeding; I95.89 Other hypotension; B96.20 Unspecified Escherichia coli [E. coli] as the cause of diseases classified elsewhere; F32.9 Major depressive disorder, single episode, unspecified; F17.210 Nicotine dependence, cigarettes, uncomplicated; Z88.6 Allergy status to analgesic agent; Z88.8 Allergy status to other drugs, medicaments and biological substances; I25.2 Old myocardial infarction; Z90.49 Acquired absence of other specified parts of digestive tract
CPT/HCPCS: 36415; 47000; 51701; 71045; 71046; 71260; 74018; 74176; 74178; 77012; 80048; 80053; 81003; 81015; 82105; 82378; 82533; 82550; 83690; 83735; 84443; 85025; 85610; 85730; 86301; 86850; 86900; 86901; 87077; 87086; 87186; 88307; 88333; 88334; 88341; 88342; 88360; 88361; 88377; 93005; 96374; C1788; J0690; J0696; J1170; J1642; J1644; J2250; J2270; J2405; J2704; J3010; J3490; Q0163; Q9967; S0020; S0028